=== PATIENT | female | born 1990 | race African-American/Black ===

== ENCOUNTER 2016-08-07 07:24 | Inpatient (IN) | payer MEDICAID ==
[~2016-08-07] VITALS: Ht 149.9 cm; Wt 54.4 kg
[2016-08-07] VITALS (9 sets, daily range): BP systolic 104–124; BP diastolic 63–83
[~2016-08-07 07:24] MED LIST: ACETAMINOPHEN650 M4 GT; ALBUTEROL2.5 MG/3 M INH; AMPICILLIN250 MG PO; ARTIFICIAL TEA3.5 G2 BOTH EYES; ASCORBIC ACID500 MG GT; ASPIR 8181 MG ORAL; B COMPLEX WITH1 EACH ORAL; CEPHALEXIN500 MG ORAL; CIPRO500 MG PO; COLACE100 MG ORAL; DITROPAN10 MG ORAL; FERROUS SU300 MG/5 M GT; FLUCONAZOLE100 MG ORAL; IBUPROFEN600 MG ORAL; IRON55 M1 PO; LEVAQUIN750 MG IVPB; LEVOFLOXACIN500 MG ORAL; MAGNESIUM OXID400 M1 ORAL; NEOSPORIN28 GM TP; NITROFURANTOIN100 M2 ORAL; OMEPRAZOLE40 M1 GT; RANITIDINE HCL150 MG GT; RITALIN5 MG ORAL; TYGACIL50 MG IVPB; TYLENOL650 MG/20. ORAL; VITAMIN D-32000 UNI1 PO; VITAMIN D1000 UNI1 ORAL; ZINC SULFATE220 M1 ORAL
[2016-08-07] MEDS ORDERED: Acetaminophen 650mg/20.3ml GT ONE (08:00)
[2016-08-07] MEDS ORDERED: Piperacillin/Tazobactam 3.375 GM in NS 110 ML IVPB ONE (08:00)
[2016-08-07] MEDS ORDERED: Gastrograffin 30ml ORAL ONE (08:00)
--- NOTE | 2016-08-07 08:07 | Emergency Room Report ---
History of Present Illness General Chief Complaint: Fever Source: Patient, Family Member, Medical Record Present Illness HPI 26-year-old woman with spina bifida and chronic illness, to include G-tube, PEG tube, history of severe ulcers, history of UTI and sepsis in the past. Presenting with history of possible infected G-tube location, received a PICC line at [facility] on the of this month. Discharge from the hospital on . Sent home but no home health her antibiotics were received or have been given since . The patient is not a great historian and recounts fevers, chills, shaking as well as nausea without vomiting or diarrhea. No complaints of severe respiratory symptoms, recent hospitalization has occurred and patient has been exposed to sick contacts, likely with the flu. 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 To include UTI, pneumonia, infected wounds, and G-tube infections. Found to be significantly tachycardic and febrile initially. I met the patient is severe she was brought to bed #7. Allergies: Coded Allergies: VANCOMYCIN (Verified Allergy, Intermediate, Hives, 11/27/14) Red man syndrome LATEX (Verified Allergy, Mild, 08/31/13) MEROPENEM (Unverified Allergy, Mild, Rash, 11/27/14) SULFAMETHOXAZOLE (Unverified Allergy, Unknown, 07/24/15) TRIMETHOPRIM (Unverified Allergy, Unknown, 07/24/15) Uncoded Allergies: bacrtrim (Allergy, Unknown, 07/24/15) Patient History Past Medical History: none, see triage record, old chart reviewed Past Surgical History: other - G-tube, trach Social History: Denies: alcohol use, smoking Last Menstrual Period: One week ago Now: No Immunizations: UTD Reviewed Nursing Documentation: PMH: Agreed Nursing Documentation-PMH Hx COPD: Yes - respiratory failure Hx Cancer: No Hx Gastrointestinal Problems: Yes - Gastrostomy tube, Hx Neurological Problems: Yes - hydrocephalus Hx Brain Shunt: Yes - Ventriculoperitoneal Shunt Review of Systems Constitutional: Reports: chills, fever, malaise, sweats, weakness ENT: Denies: ear discharge Respiratory: Denies: KERR, orthopnea, shortness of breath, sputum, stridor Cardiovascular: Reports: palpitations, Denies: chest pain, syncope Gastrointestinal: Reports: nausea, Denies: diarrhea, vomiting All Other Systems: negative except mentioned in HPI Physical Exam Vital Signs Date Time Temp Pulse Resp B/P Pulse Ox O2 Delivery O2 Flow Rate FiO2 08/07/16 07:28 102.4 139 20 104/71 100 Room Air Sp02 EP Interpretation: reviewed, abnormal - tachycardic, febrile General Appearance: alert, mild distress, cachetic, thin, Chronically Ill Head: atraumatic Eyes: bilateral eye PERRL Neck: supple, other - no lymphadenopathy, tracheotomy - , no drainage or purulence surrounding Respiratory: chest non-tender, no wheezing, rhonchi - , upper airway sounds, chest symmetrical Cardiovascular #1: no edema, normal capillary refill, tachycardia Cardiovascular #2: 2+ carotid (R), 2+ carotid (L) Gastrointestinal: soft, no organomegaly, non-distended, no rebound, other - G- tube in place, surrounding skin, without redness, erythema or drainage Genitourinary: no CVA tenderness Musculoskeletal: back normal, other - PICC line, left upper Bryn, no sign of redness, swelling or drainage around site. Neurologic: alert, oriented x3, responsive, visual merchandising specialist III-XII nml as tested Psychiatric: normal inspection, judgement/insight normal Skin: no rash, other - well healed deep scar is from decubitus ulcers, no open wounds Procedures Critical Care Time Critical Care Time 65 minutes of crCritical care, not including procedures. This involved initial assessment, reassessments, history and record review does, discussions with family, review of labs, old records and labs, review of imaging and discussion with consultants, admission physicians and resuscitation efforts as well as reexaminations. Medical Decision Making Diagnostic Impression: Primary Impression: Fever with chills Additional Impressions: History of gastrostomy tube placement Tracheostomy in place Sepsis Spina bifida aperta of lumbar spine Tachycardia Paraplegia UTI (urinary tract infection) ER Course Patient was rapidly reviewed and met in bed 7. She has significant fever, tachycardia and is chronically ill at baseline. Differential can be wide but includes multiple infectious sources, such as trach infection, PICC line infection, septicemia, G-tube infection, osteomyelitis, influenza, pneumonia, or UTI. Brought review and analysis of patient required an extensive workup to include urinalysis, x-ray, blood work, cultures, CT abdomen and pelvis. Sepsis order set started with lactate, gases, IV fluids and antibiotics can to include Zosyn. The patient is supposed to be on antibiotic but she is unaware of what the anabiotic would be, mother is also unaware of the correct antibiotic. She has no primary care doctor and they state that they go to [facility] for all of their care. Patient at this time in my opinion is highly likely for sepsis, and require mission to the hospital. My initial review of chest x-ray, urinalysis and blood work reveals that overall she does not have an elevated white count, or renal dysfunction fortunately. Chest x-ray does not show pneumonia. I do believe that the patient likely is indices suggestive of urinary infection. Antibiotics to include Zosyn have been started. A CT of the abdomen and pelvis will also be obtained as she is relatively high-risk patient. I believe based on her fever, tachycardia, early sepsis without septic shock at this time she should be admitted for further antibiotics and treatment. We'll have to contact admitting physicians for this. Reviewed patient's followup vitals, improved on fever and tachycardia, stable blood pressure, spoke with Dr. Mayen and we feel she is a good patient for admission for the HOLLY due to her complicated risk factors and risk of decompensation. Laboratory Tests Test 08/07/16 08:15 08/07/16 08:30 White Blood Count 7.2 K/UL (4.8-10.8) Red Blood Count 3.80 M/UL (4.20-5.40) L Hemoglobin 12.3 G/DL (12.0-16.0) Hematocrit 35.6 % (37.0-47.0) L Mean Corpuscular Volume 94 FL (80-99) Mean Corpuscular Hemoglobin 32.4 PG (27.0-31.0) H Mean Corpuscular Hemoglobin Concent 34.6 G/DL (32.0-36.0) Red Cell Distribution Width 12.8 % (11.6-14.8) Platelet Count 214 K/UL (150-450) Mean Platelet Volume 7.7 FL (6.5-10.1) Neutrophils (%) (Auto) 71.9 % (45.0-75.0) Lymphocytes (%) (Auto) 13.4 % (20.0-45.0) L Monocytes (%) (Auto) 8.3 % (1.0-10.0) Eosinophils (%) (Auto) 5.6 % (0.0-3.0) H Basophils (%) (Auto) 0.8 % (0.0-2.0) Prothrombin Time 11.5 SEC (9.30-11.50) Prothromb Time International Ratio 1.1 (0.9-1.1) Activated Partial Thromboplast Time 30 SEC (23-33) Sodium Level 137 mEQ/L (135-145) Potassium Level 3.9 mEQ/L (3.4-4.9) Chloride Level 96 mEQ/L (98-107) L Carbon Dioxide Level 23 mEQ/L (20-30) Anion Gap 18 (5-15) H Blood Urea Nitrogen 11 mg/dL (7-23) Creatinine 0.5 mg/dL (0.5-0.9) Estimat Glomerular Filtration Rate > 60 mL/min (>60) Glucose Level 82 mg/dL (74-106) Lactic Acid Level 0.90 mmol/L (0.66-2.22) Calcium Level 9.3 mg/dL (8.6-10.2) Phosphorus Level 3.3 mg/dL (2.5-4.8) Magnesium Level 1.8 mg/dL (1.7-2.5) Total Bilirubin 0.5 mg/dL (0.0-1.2) Aspartate Amino Transf (AST/SGOT) 36 U/L (5-40) Alanine Aminotransferase (ALT/SGPT) 47 U/L (3-33) H Alkaline Phosphatase 113 U/L (35-104) H Total Creatine Kinase 46 U/L (26-140) Creatine Kinase MB < 1.5 ng/mL (< 3.8) Creatine Kinase MB Relative Index 3.2 Troponin I < 0.30 ng/mL (<=0.30) Total Protein 7.8 g/dL (6.6-8.7) Albumin 4.0 g/dL (3.5-5.2) Globulin 3.8 g/dL Albumin/Globulin Ratio 1.0 (1.0-2.7) Lipase 15 U/L (< 60) Urine Color Yellow Urine Appearance Slightly cloudy Urine pH 6 (4.5-8.0) Urine Specific [place] 1.015 (1.005-1.035) Urine Protein 2+ (NEGATIVE) H Urine Glucose (UA) Negative (NEGATIVE) Urine Ketones Negative (NEGATIVE) Urine Occult Blood 2+ (NEGATIVE) H Urine Nitrite Positive (NEGATIVE) H Urine Bilirubin Negative (NEGATIVE) Urine Urobilinogen Normal MG/DL (0.0-1.0) Urine Leukocyte Esterase 3+ (NEGATIVE) H Urine RBC 2-4 /HPF (0 - 2) H Urine WBC 20-30 /HPF (0 - 2) H Urine Squamous Epithelial Cells Few /LPF (NONE/OCC) Urine Bacteria Moderate /HPF (NONE) H EKG Diagnostic Results EKG Time: 08:02 EP Interpretation: sinus tachycardia, rate 137 Rate: tachycardiac ST Segments: no acute changes Rhythm Strip Diag. Results Rhythm Strip Time: 08:07 EP Interpretation: yes Rate: 144 Rhythm: no PVC's, no ectopy, other - sinus tach Chest X-Ray Diagnostic Results Time: 08:46 EP Interpretation: Yes Findings: no consolidation, no effusion, no pneumothorax, no acute cardiopulmonary disease, other - trach in place Number of Views: 1 Reevaluation Time: 10:28 Last Vital Signs Date Time Temp Pulse Resp B/P Pulse Ox O2 Delivery O2 Flow Rate FiO2 08/07/16 07:48 103.2 136 20 104/71 100 Room Air Status: improved - reduce temperature, reduced hear rate, stable blood pressure Disposition: ADMITTED INPATIENT Admit Decision Time: 08:07 Condition: Serious Enmanuel Álvarez MD Aug 07, 2016 08:07
[2016-08-07] MEDS ORDERED: ANTIBIOTIC (08:08)
[2016-08-07] MEDS ORDERED: Zosyn 3.375gm inj ONE (08:44)
[2016-08-07 08:45] LABS: INR 1.1 (0.9-1.1); PROTHROMBIN TIME 11.5 SEC (9.30-11.50)
[2016-08-07 08:48] LABS: BASOPHILS % (AUTO) 0.8 % (0.0-2.0); EOSINOPHILS % (AUTO) 5.6 % (0.0-3.0); LYMPHOCYTES % (AUTO) 13.4 % (20.0-45.0); MEAN CORPUSCULAR HEMOGLOBIN 32.4 PG (27.0-31.0); MEAN CORPUSCULAR HGB CONC 34.6 G/DL (32.0-36.0); MEAN CORPUSCULAR VOLUME 94 FL (80-99); MEAN PLATELET VOLUME 7.7 FL (6.5-10.1); MONOCYTES % (AUTO) 8.3 % (1.0-10.0); NEUTROPHILS % (AUTO) 71.9 % (45.0-75.0); PLATELET COUNT 214 K/UL (150-450); RED CELL DISTRIBUTION WIDTH 12.8 % (11.6-14.8); WHITE BLOOD COUNT 7.2 K/UL (4.8-10.8)
[2016-08-07 08:59] LABS: APPEARANCE,URINE SLIGHTLY CLOUDY; KETONES,URINE NEGATIVE (NEGATIVE); LEUKOCYTE ESTERASE ,URINE 3+ (NEGATIVE); NITRITE,URINE POSITIVE (NEGATIVE); PH,URINE 6 (4.5-8.0); PROTEIN,URINE 2+ (NEGATIVE); UROBILINOGEN,URINE NORMAL MG/DL (0.0-1.0)
[2016-08-07 09:03] LABS: ALANINE AMINOTRANSFERASE 47 U/L (3-33); ANION GAP 18 (5-15); ASPARTATE AMINO TRANSFERASE 36 U/L (5-40); CALCIUM 9.3 mg/dL (8.6-10.2); CARBON DIOXIDE 23 mEQ/L (20-30); CHLORIDE 96 mEQ/L (98-107); CREATININE 0.5 mg/dL (0.5-0.9); GLOMERULAR FILTRATION RATE > 60 mL/min (>60); HEMOLYSIS 16; LIPASE 15 U/L (< 60); MAGNESIUM 1.8 mg/dL (1.7-2.5); PHOSPHORUS 3.3 mg/dL (2.5-4.8); POTASSIUM 3.9 mEQ/L (3.4-4.9); SODIUM 137 mEQ/L (135-145); TOTAL PROTEIN 7.8 g/dL (6.6-8.7); TROPONIN I < 0.30 ng/mL (<=0.30)
[2016-08-07 09:09] LABS: BACTERIA,URINE MODERATE /HPF; SQUAMOUS EPITHELIAL CELL,UR FEW /LPF (NONE/OCC); WBC,URINE 20-30 /HPF (0 - 2)
[2016-08-07 09:14] LABS: CKMB < 1.5 ng/mL (< 3.8)
--- NOTE | 2016-08-07 11:29 | Diagnostic Imaging Report ---
Indication: Abdominal pain Technique: CT of the abdomen and pelvis utilizing automated exposure control with intravenous and oral contrast. Venous scanning performed. CT dose: Total DLP 673 mGycm; CTDI vol 15.0 mGy Comparison: None Findings: There is atelectasis in the lung bases. Gastrostomy tube is noted in the stomach. Liver, adrenal glands, kidneys, spleen and pancreas are unremarkable. Questioned level densities in the gallbladder could represent small stones. Lezama catheter is present. Uterus is grossly unremarkable. There is moderate stool throughout the colon. The appendix is normal. A peritoneal catheter is present. There is trace free fluid in the pelvis. There is chronic deformity of the spine with reported history of spina bifida. 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 Impression: Gastrostomy tube noted within the stomach. No mechanical obstruction. Normal appendix. Moderate colonic stool. Chronic osseous findings as above. The CT scanner at [facility] is accredited by the [employer] and the scans are performed using protocols designed to limit radiation exposure to as low as reasonably achievable to attain images of sufficient resolution adequate for diagnostic evaluation.
--- NOTE | 2016-08-07 11:46 | Diagnostic Imaging Report ---
Indication: Cough Technique: XRAY CHEST 1 V Comparison: 02/05/16 Findings: Left PICC line is present with tip projecting over the SVC/atrial junction. Right chest shunt is noted. Tracheostomy seen. Cardiomediastinal silhouette is stable. Mild atelectasis is noted in the left base. There is no pleural effusion. Osseous structures are stable. Impression: Mild left basilar atelectasis. Otherwise no acute cardiopulmonary disease. Left PICC line and right chest shunt tubing.
[2016-08-07] MEDS ORDERED: LORazepam Inj 2mg/ml 1ml IV PRN (12:30)
[2016-08-07] MEDS ORDERED: Morphine Sulfate 4mg/ml Inj IVP PRN (12:30)
[2016-08-07] MEDS ORDERED: DuoNeb 0.5-3(2.5)mg/3ml neb HHN PRN (12:30)
[2016-08-07] MEDS ORDERED: Miralax 17gm pkt ORAL PRN (12:30)
[2016-08-07] MEDS ORDERED: Aztreonam Inj 1 GM in NS 50 ML IVPB SCH (14:00)
[2016-08-07] MEDS: Oxybutynin 5mg tab ORAL SCH ×2 (14:35→22:54)
[2016-08-07] MEDS: Aztreonam Inj 1 GM in D5W 55 ML IVPB SCH (22:55)
[2016-08-07] MEDS: Heparin 5000 units/ml inj SUBQ SCH (22:56)
[2016-08-08] VITALS: BP 114/80
[2016-08-08] MEDS ORDERED: FLONASE1 SPRAYS (01:53)
[2016-08-08] MEDS ORDERED: DOCU LIQUI50 MG/5 M1 (01:53)
[2016-08-08] MEDS ORDERED: FERROUS SU220 MG/53 (01:53)
[2016-08-08] MEDS ORDERED: OXYBUTYNIN5 MG/5 M1 (01:53)
[2016-08-08 04:00] VITALS: BP 115/80
[2016-08-08] MEDS: Aztreonam Inj 1 GM in D5W 55 ML IVPB SCH (05:43)
[2016-08-08 07:55] LABS: BASOPHILS % (AUTO) 1.5 % (0.0-2.0); EOSINOPHILS % (AUTO) 4.9 % (0.0-3.0); LYMPHOCYTES % (AUTO) 23.3 % (20.0-45.0); MEAN CORPUSCULAR HEMOGLOBIN 30.3 PG (27.0-31.0); MEAN CORPUSCULAR HGB CONC 32.3 G/DL (32.0-36.0); MEAN CORPUSCULAR VOLUME 94 FL (80-99); MEAN PLATELET VOLUME 7.1 FL (6.5-10.1); NEUTROPHILS % (AUTO) 62.3 % (45.0-75.0); PLATELET COUNT 185 K/UL (150-450); RED BLOOD COUNT 3.36 M/UL (4.20-5.40); RED CELL DISTRIBUTION WIDTH 12.1 % (11.6-14.8); WHITE BLOOD COUNT 5.3 K/UL (4.8-10.8)
[2016-08-08 08:00] VITALS: BP 105/63
[2016-08-08 08:15] LABS: ANION GAP 18 (5-15); CALCIUM 9.1 mg/dL (8.6-10.2); CARBON DIOXIDE 22 mEQ/L (20-30); CHLORIDE 98 mEQ/L (98-107); CREATININE 0.6 mg/dL (0.5-0.9); GLOMERULAR FILTRATION RATE > 60 mL/min (>60); HEMOLYSIS 2; PHOSPHORUS 2.9 mg/dL (2.5-4.8); POTASSIUM 3.7 mEQ/L (3.4-4.9); SODIUM 138 mEQ/L (135-145)
[2016-08-08] MEDS: Oxybutynin 5mg tab ORAL SCH ×3 (08:48→18:08)
[2016-08-08] MEDS: Heparin 5000 units/ml inj SUBQ SCH ×2 (08:50→20:12)
--- NOTE | 2016-08-08 10:44 | Consultation ---
Consult Note Assessment/Plan ID Dic # [id number] ASSESSMENT: 89y/o female with: // HCAP vs CAP // Fever // Ro UTI - Hx of hemorrhagic cystitis UTI,: Kleb , Pseudomonas - neurogenic bladder, chronic indwelling sterling ( last changed 2 days prior by sister, again in ED ) // Stage IV sacral decubitus, not grossly infected, healing - h/o ESBL(+) E.coli, sensitive K.pneumoniae, MSSA - MRI(-) osteomyelitis 11/2014 // Sinus tachycardia // Chronic respiratory failure s/p trach, PEG // Spina bifida / paraplegia // MDRO colonized ( VRE, ESBL ) // Multiple ABX allergies - bactrim, vancomycin, meropenem. Tolerating cefepime // Full Code PLAN: - continue azactam, Zyvox, add Zithro d# 1 - monitor CBC, temperatures - monitor Cultures ( Bl, Sp, Ur) - wound care - Influenza Screen ANDRES NUNEZ M.D. Aug 08, 2016 10:44
[2016-08-08 12:00] VITALS: BP 117/76
[2016-08-08] MEDS ORDERED: Azithromycin 500 MG in D5W 275 ML IV SCH (13:00)
[2016-08-08] MEDS: cefTAZidime 1gm/D5W 55ml IV SCH ×4 (14:10→21:59)
[2016-08-08 16:00] VITALS: BP 117/75
--- NOTE | 2016-08-08 16:51 | History and Physical ---
History of Present Illness General Date patient seen: Aug 08, 2016 Reason for Hospitalization: Fever Present Illness HPI 26 year old female with hx of hydrocephalus, chronic trach, PEG, residing at home. Pt was diagnosed to have gtube site infection and was sent home to receive IV antibiotics. Home health never showed up and she didn't get any abx. then she started having fevers, and was taken by paramedics to [place] [facility] for further evaluation. Pt is awake, can't talk because of trach, fully understands. Has severe contractures is bed bound for years. Allergies: Coded Allergies: LATEX (Verified Allergy, Mild, 08/31/13) MEROPENEM (Unverified Allergy, Mild, Rash, 11/27/14) SULFAMETHOXAZOLE (Unverified Allergy, Unknown, 07/24/15) TRIMETHOPRIM (Unverified Allergy, Unknown, 07/24/15) VANCOMYCIN (Verified Adverse Reaction, Intermediate, Hives/Red man syndrome, 08/08/16) Red man syndrome Uncoded Allergies: bacrtrim (Allergy, Unknown, 07/24/15) Medication History Scheduled Acetaminophen (Acetaminophen 8 Hour), 650 MG GT Q8H, (Reported) Ascorbic Acid* (Ascorbic Acid*), 500 MG GT DAILY, (Reported) Aspirin* (Aspir 81*), 81 MG ORAL DAILY Cephalexin* (Keflex*), 500 MG ORAL EVERY 6 HOURS Cholecalciferol (Vitamin D3)* (Vitamin D*), 5,000 UNITS ORAL DAILY, (Reported) Ciprofloxacin* (Cipro*), 500 MG PO BID Docusate Sodium* (Colace*), 100 MG ORAL TWICE A DAY, (Reported) Ferrous Sulfate (Ferrous Sulfate), 300 MG GT TID Fluconazole (Fluconazole), 100 MG ORAL DAILY Levofloxacin (Levofloxacin*), 500 MG ORAL DAILY Levofloxacin* (Levaquin*), 750 MG IVPB DAILY Magnesium Oxide (Magnesium Oxide), 400 MG ORAL BID, (Reported) Mineral Oil/Petrolatum,White (Artificial Tears Eye Oint), 3.5 GM BOTH EYES QHS, (Reported) Nitrofurantoin Monohyd/M-Cryst* (Macrobid 100 Mg*), 100 MG ORAL EVERY 12 HOURS Omeprazole (Omeprazole), 40 MG GT DAILY, (Reported) Oxybutynin Chloride (Oxybutynin Chloride), 5 MG ORAL TID, (Reported) Ranitidine Hcl* (Zantac*), 150 MG GT TWICE A DAY Vitamin B Complex & Vit C No.3 (B Complex With Vitamin C), 1 TAB ORAL DAILY, ( Reported) Zinc Sulfate (Zinc Sulfate*), 220 MG ORAL DAILY Scheduled PRN Acetaminophen (Acetaminophen), 650 MG ORAL Q4HR PRN for Fever/Headache/Mild Pain , (Reported) Albuterol Sulfate* (Albuterol Sulfate Hhn*), 3 ML INH Q4H PRN for Shortness of Breath, (Reported) Miscellaneous Medications Cholecalciferol (Vitamin D3) (Vitamin D-3), 5,000 UNIT PO, (Reported) Docusate Sodium (Docu Liquid), (Reported) Ferrous Sulfate (Ferrous Sulfate), (Reported) Fluticasone Propionate (Fluticasone Propionate), (Reported) Oxybutynin Chloride (Oxybutynin Chloride), (Reported) [IV antibiotic], (Reported) Patient History Healthcare decision maker Resuscitation status No Chest Compressions Advanced Directive on File Past Medical/Surgical History Past Medical/Surgical History: (1) History of gastrostomy tube placement (2) Hydrocephalus (3) Tracheostomy in place (4) Decubitus skin ulcer (5) Spina bifida aperta of lumbar spine Review of Systems All Other Systems: negative except mentioned in HPI Physical Exam General Appearance: cachetic Lines, tubes and drains: peripheral, PICC, gtube HEENT: normocephalic Neck: non-tender, normal alignment Respiratory/Chest: chest wall non-tender, lungs clear Abdomen: normal bowel sounds Extremities: normal range of motion Skin Exam: normal pigmentation Last 24 Hour Vital Signs Date Time Temp Pulse Resp B/P Pulse Ox O2 Delivery O2 Flow Rate FiO2 08/08/16 12:00 111 08/08/16 12:00 97.3 113 16 117/76 99 Room Air 08/08/16 08:00 113 08/08/16 08:00 98.1 100 16 105/63 98 Room Air 2.0 08/08/16 05:15 98.4 08/08/16 05:15 98.4 08/08/16 04:00 129 08/08/16 04:00 100.4 129 18 115/80 100 Nasal Cannula 5.0 08/08/16 00:00 118 08/08/16 00:00 97.2 111 18 114/80 100 Room Air 08/07/16 22:46 99.1 122 20 109/63 99 Room Air 08/07/16 22:17 100.5 124 18 118/62 98 Room Air 124 08/07/16 21:33 100.5 124 22 114/70 99 Room Air 124 08/07/16 19:30 101.2 122 22 110/71 99 Room Air 122 Intake and Output 08/07/16 08/08/16 19:00 07:00 Intake Total 160 ml 590 ml Output Total 200 ml 1000 ml Balance -40 ml -410 ml Intake Free Water 100 ml IV Total 160 ml 415 ml Tube Feeding 75 ml Output Urine Total 200 ml 1000 ml Laboratory Tests Test 08/08/16 06:40 White Blood Count 5.3 K/UL (4.8-10.8) Red Blood Count 3.36 M/UL (4.20-5.40) L Hemoglobin 10.2 G/DL (12.0-16.0) L Hematocrit 31.5 % (37.0-47.0) L Mean Corpuscular Volume 94 FL (80-99) Mean Corpuscular Hemoglobin 30.3 PG (27.0-31.0) Mean Corpuscular Hemoglobin Concent 32.3 G/DL (32.0-36.0) Red Cell Distribution Width 12.1 % (11.6-14.8) Platelet Count 185 K/UL (150-450) Mean Platelet Volume 7.1 FL (6.5-10.1) Neutrophils (%) (Auto) 62.3 % (45.0-75.0) Lymphocytes (%) (Auto) 23.3 % (20.0-45.0) Monocytes (%) (Auto) 8.0 % (1.0-10.0) Eosinophils (%) (Auto) 4.9 % (0.0-3.0) H Basophils (%) (Auto) 1.5 % (0.0-2.0) Sodium Level 138 mEQ/L (135-145) Potassium Level 3.7 mEQ/L (3.4-4.9) Chloride Level 98 mEQ/L (98-107) Carbon Dioxide Level 22 mEQ/L (20-30) Anion Gap 18 (5-15) H Blood Urea Nitrogen 7 mg/dL (7-23) Creatinine 0.6 mg/dL (0.5-0.9) Estimat Glomerular Filtration Rate > 60 mL/min (>60) Glucose Level 93 mg/dL (74-106) Calcium Level 9.1 mg/dL (8.6-10.2) Phosphorus Level 2.9 mg/dL (2.5-4.8) Albumin 3.7 g/dL (3.5-5.2) Microbiology Date/Time Source Procedure Growth Status 08/08/16 11:30 Nasopharynx Influenza Types A,B Antigen (TEX) - Final Complete Height (Feet): 4 Height (Inches): 11.00 Weight (Pounds): 120 Medications Current Medications Medications (Trade) Dose Ordered Sig/Hedy Route PRN Reason Start Time Stop Time Status Last Admin Dose Admin Acetaminophen (Tylenol) 650 mg Q4H PRN ORAL FEVER 08/07/16 12:30 09/06/16 12:29 08/08/16 04:16 Albuterol/ Ipratropium (DuoNeb 0.5-3(2.5)mg/3ml) 3 ml Q4H PRN HHN Shortness of Breath 08/07/16 12:30 08/12/16 12:29 08/07/16 12:43 Azithromycin/ Dextrose (Zithromax/D5W) 275 ml @ 275 mls/hr Q24HRS IV 08/08/16 13:00 08/14/16 13:59 08/08/16 13:00 Ceftazidime 1 gm/ Dextrose 55 ml @ 110 mls/hr Q8HR IV 08/08/16 14:00 08/15/16 13:59 08/08/16 14:10 Dextrose (Dextrose 50%) STAT PRN IV Hypoglycemia 08/07/16 12:30 09/06/16 12:29 Heparin Sodium (Porcine) (Heparin 5000 units/ml) 5,000 units EVERY 12 HOURS SUBQ 08/07/16 21:00 09/06/16 20:59 08/08/16 08:50 Linezolid 600 mg 600 mg EVERY 12 HOURS ORAL 08/07/16 14:30 08/12/16 14:29 08/08/16 08:48 Lorazepam (Ativan 2mg/ml 1ml) 2 mg Q2H PRN IV For Anxiety 08/07/16 12:30 08/14/16 12:29 Morphine Sulfate (Morphine Sulfate) 4 mg Q4H PRN IVP Severe Pain (Pain Scale 7-10) 08/07/16 12:30 08/14/16 12:29 Ondansetron HCl (Zofran) 4 mg Q6H PRN IVP Nausea & Vomiting 08/07/16 12:30 09/06/16 12:29 Oxybutynin Chloride 5 mg 5 mg TID ORAL 08/07/16 13:00 09/06/16 12:59 08/08/16 08:48 Polyethylene Glycol (Miralax) 17 gm DAILYPRN PRN ORAL Constipation 08/07/16 12:30 09/06/16 12:29 Sodium Chloride (0.45% NS 1000ml) 1,000 ml @ 50 mls/hr Q20H IV 08/07/16 13:00 09/06/16 12:59 08/08/16 13:02 Assessment/Plan Problem List: (1) G-tube site cellulitis ICD Codes: K94.22 - Gastrostomy infection; L03.319 - Cellulitis of trunk, unspecified SNOMED: 645819788, 465870471 (2) Sepsis ICD Codes: A41.9 - Sepsis SNOMED: 40313767 (3) Hydrocephalus ICD Codes: G91.9 - Hydrocephalus SNOMED: 064171083 (4) Tachycardia ICD Codes: R00.0 - Tachycardia SNOMED: 0738550 (5) Spina bifida aperta of lumbar spine ICD Codes: Q05.7 - Spina bifida aperta of lumbar spine SNOMED: 923603598 Assessment/Plan IV antibtiotics check cultures GI evaluation SHEYLA CAMPOS Aug 08, 2016 16:51
--- NOTE | 2016-08-08 18:58 | Cardiology Report ---
APPROVED REPORT EKG Measurement Heart [id number] MD [id number] Sinus tachycardia Otherwise normal ECG
[2016-08-08 20:00] VITALS: BP 107/68
--- NOTE | 2016-08-08 20:17 | Consultation ---
DATE OF CONSULTATION: INFECTIOUS DISEASE CONSULTATION REFERRING PHYSICIAN: Emily Mayen M.D. REASON FOR CONSULTATION: Evaluation of the patient for pneumonia, fever, antibiotic management. HISTORY OF PRESENT ILLNESS: The patient is a 26-year-old female with multiple medical problems as listed above who came to the hospital due to fever, productive cough with reported cough with greenish sputum. The patient is receiving . Infectious Diseases consultation requested for further evaluation of the patient's antibiotic management. The patient's mother mention that some time when she eats she has occasional cough. PAST MEDICAL HISTORY: 1. Significant for hematuria/hemorrhagic cystitis. 2. Stage IV sacral decubitus. 3. Sinus bradycardia. 4. Respiratory failure status post tracheostomy and percutaneous endoscopic gastrostomy. 5. Spina bifida//paraplegia. MEDICATIONS: Zyvox. ALLERGIES: Latex, meropenem, sulfa trimethoprim, vancomycin, Bactrim. SOCIAL HISTORY: The patient lives at home with family. REVIEW OF SYSTEMS: A 10-point was done except for what was mentioned was negative. PHYSICAL EXAMINATION: VITAL SIGNS: Temperature 100.4, pulse 86, respiratory rate 18, and blood pressure 105/60, T-max 103.2. HEENT: Mild pale conjunctivae. No icterus. NECK: Trach in place. CHEST: Coarse breathing sounds. HEART: S1 and S2. ABDOMEN: Soft G-tube in place. EXTREMITIES: Contracted. SKIN: Stage 2 to 3 sacral decubitus. LABORATORY AND DIAGNOSTIC DATA: White cell 5, hemoglobin 10, platelet 185,000. UA 20 to 30 white blood cells, BUN 7, creatinine 0.8. ALT and AST unremarkable, alkaline phosphatase 113. ASSESSMENT: The patient is a 26-year-old female, who came to the hospital with fever and sputum production. Chest x-ray showed mild left basilar atelectasis. Also, the patient has a PICC line, concern for possible line infection and bacteremia. CT scan of the abdomen did not show any evidence of abscess or source of infection. PLAN: 1. We will continue the patient on Zyvox. We will add Zithromax for coverage of atypicals. 2. Monitor cultures(sputum, urine, and blood). 3. Rapid influenza test. 4. Monitor chest x-ray. 5. Monitor CBC and BMP in the morning. 6. Based on the patient's clinical course and laboratories, we will do further recommendation. Thank you, Dr. Mayen, for allowing me to participate in the care of this patient. I will follow the patient with you during this hospitalization. Celio Maxwell M.D. DR: Jenn JOB#: [id number] CC:
[2016-08-09] VITALS (7 sets, daily range): BP systolic 94–103; BP diastolic 54–64
[2016-08-09] MEDS: cefTAZidime 1gm/D5W 55ml IV SCH ×2 (05:40)
[2016-08-09] MEDS ORDERED: Miralax 17gm pkt ORAL PRN (07:41)
[2016-08-09] MEDS ORDERED: DuoNeb 0.5-3(2.5)mg/3ml neb HHN PRN (07:41)
[2016-08-09] MEDS ORDERED: LORazepam Inj 2mg/ml 1ml IV PRN (07:41)
[2016-08-09] MEDS ORDERED: Morphine Sulfate 4mg/ml Inj IVP PRN (07:41)
[2016-08-09] MEDS: Heparin 5000 units/ml inj SUBQ SCH ×2 (09:00→21:19)
[2016-08-09] MEDS: Oxybutynin 5mg tab ORAL SCH ×4 (09:32→17:07)
--- NOTE | 2016-08-09 10:48 | Infectious Diseases Prog Note ---
Assessment/Plan Assessment/Plan ASSESSMENT: 26y/o female with: // HCAP vs CAP - SCx GNR, NRF - CXR 08/07: Mild left basilar atelectasis. Otherwise no acute cardiopulmonary disease. // Recurrent complicated UTI - UCx K.pneumoniae - Hx of hemorrhagic cystitis, Kleb , Pseudomonas - neurogenic bladder, chronic indwelling sterling // Stage IV sacral decubitus, not grossly infected, healing - h/o ESBL(+) E.coli, sensitive K.pneumoniae, MSSA - MRI(-) osteomyelitis 11/2014 // Negative influenza // Fever - improved, no leukocytosis // Sinus tachycardia // Chronic respiratory failure s/p trach, PEG // Spina bifida / paraplegia // Dysphagia SP PEG // MDRO colonized ( VRE, ESBL ) // Multiple ABX allergies - bactrim, vancomycin, meropenem. Tolerates cephalosporins // Full Code PLAN: - continue azactam, Zyvox, add Zithro d# 2 - monitor CBC, temperatures - monitor Cultures ( Bl, Sp, Ur) - wound care Subjective Allergies: Coded Allergies: LATEX (Verified Allergy, Mild, 08/31/13) MEROPENEM (Unverified Allergy, Mild, Rash, 11/27/14) SULFAMETHOXAZOLE (Unverified Allergy, Unknown, 07/24/15) TRIMETHOPRIM (Unverified Allergy, Unknown, 07/24/15) VANCOMYCIN (Verified Adverse Reaction, Intermediate, Hives/Red man syndrome, 08/08/16) Red man syndrome Uncoded Allergies: bacrtrim (Allergy, Unknown, 07/24/15) Subjective fevers improved Objective Vital Signs Last 24 Hour Vital Signs Date Time Temp Pulse Resp B/P Pulse Ox O2 Delivery O2 Flow Rate FiO2 08/09/16 08:45 98.4 109 19 94/58 99 Room Air 08/09/16 08:43 98.4 109 19 99 Room Air 08/09/16 04:00 98.8 114 18 100/64 100 Nasal Cannula 5.0 08/09/16 04:00 124 08/09/16 00:41 99 Trach Collar 6.0 28 08/09/16 00:41 Trach Collar 6.0 28 08/09/16 00:00 97.0 106 16 100/54 100 5.0 08/09/16 00:00 99 08/08/16 22:11 100 Trach Collar 6.0 28 08/08/16 22:11 Trach Collar 6.0 28 08/08/16 22:09 114 18 Trach Collar 6.0 28 08/08/16 20:00 98.2 125 14 107/68 100 Room Air 08/08/16 20:00 116 08/08/16 17:56 98.7 08/08/16 16:00 101.5 119 14 117/75 100 Room Air 08/08/16 16:00 117 08/08/16 12:00 111 08/08/16 12:00 97.3 113 16 117/76 99 Room Air Height (Feet): 4 Height (Inches): 11.00 Weight (Pounds): 120 General Appearance: no acute distress Respiratory/Chest: no respiratory distress Cardiovascular: normal rate, regular rhythm Abdomen: normal bowel sounds, soft, non tender, non distended, other - PEG Microbiology Date/Time Source Procedure Growth Status 08/07/16 08:37 Blood Blood Culture - Preliminary NO GROWTH AFTER 24 HOURS Resulted 08/07/16 08:15 Blood Blood Culture - Preliminary NO GROWTH AFTER 24 HOURS Resulted 08/08/16 11:30 Nasopharynx Influenza Types A,B Antigen (TEX) - Final Complete 08/07/16 10:01 Sputum Expectorated Gram Stain - Final Resulted 08/07/16 10:01 Sputum Culture - Preliminary Gram Negative Bacillus 1 Usual Upper Respiratory Fatimah Resulted 08/07/16 08:30 Urine,Clean Catch Urine Culture - Final Klebsiella Pneumoniae Complete Current Medications Medications (Trade) Dose Ordered Sig/Hedy Route PRN Reason Start Time Stop Time Status Last Admin Dose Admin Acetaminophen (Tylenol) 650 mg Q4H PRN ORAL FEVER 08/09/16 08:30 09/08/16 08:29 Albuterol/ Ipratropium (DuoNeb 0.5-3(2.5)mg/3ml) 3 ml Q4H PRN HHN Shortness of Breath 08/09/16 07:41 08/14/16 07:40 Azithromycin 500 mg/Dextrose 275 ml @ 275 mls/hr Q24HRS IV 08/09/16 13:00 08/14/16 13:59 Ceftazidime/ Dextrose (Fortaz/D5W) 55 ml @ 110 mls/hr Q8HR IV 08/09/16 14:00 08/16/16 13:59 Dextrose (Dextrose 50%) STAT PRN IV Hypoglycemia 08/09/16 07:40 09/08/16 07:39 Heparin Sodium (Porcine) (Heparin 5000 units/ml) 5,000 units EVERY 12 HOURS SUBQ 08/09/16 09:00 09/08/16 08:59 08/09/16 09:00 Linezolid (Zyvox) 600 mg EVERY 12 HOURS ORAL 08/09/16 09:00 08/14/16 08:59 08/09/16 09:32 Lorazepam (Ativan 2mg/ml 1ml) 2 mg Q2H PRN IV For Anxiety 08/09/16 07:41 08/16/16 07:40 Morphine Sulfate (Morphine Sulfate) 4 mg Q4H PRN IVP Severe Pain (Pain Scale 7-10) 08/09/16 07:41 08/16/16 07:40 Ondansetron HCl (Zofran) 4 mg Q6H PRN IVP Nausea & Vomiting 08/09/16 07:41 09/08/16 07:40 Oxybutynin Chloride (Ditropan) 5 mg TID ORAL 08/09/16 09:00 09/08/16 08:59 08/09/16 09:32 Polyethylene Glycol (Miralax) 17 gm DAILYPRN PRN ORAL Constipation 08/09/16 07:41 09/08/16 07:40 Sodium Chloride 1,000 ml @ 50 mls/hr Q20H IV 08/09/16 08:00 09/08/16 07:59 CHUNG ARMENTA Aug 09, 2016 10:48
[2016-08-09] MEDS: Azithromycin 500 MG in D5W 275 ML IV SCH (14:27)
--- NOTE | 2016-08-09 15:18 | GI Initial Consult Note ---
History of Present Illness General Date patient seen: Aug 09, 2016 Time patient seen: 13:00 Reason for Hospitalization: Fever Referring physician: SHEYLA QUIGLEY Reason for Consultation: GT SITE CELLUTITIS Present Illness HPI 26-year-old woman with spina bifida and chronic illness, to include G-tube, PEG tube, history of severe ulcers, history of UTI and sepsis in the past. Presenting with history of possible infected G-tube location, received a PICC line at [facility] on the of this month. Discharge from the hospital on . Sent home but no home health her antibiotics were received or have been given since . The patient is not a great historian and recounts fevers, chills, shaking as well as nausea without vomiting or diarrhea. No complaints of severe respiratory symptoms, recent hospitalization has occurred and patient has been exposed to sick contacts, likely with the flu. 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 To include UTI, pneumonia, infected wounds, and G-tube infections. Found to be significantly tachycardic and febrile initially. I met the patient is severe she was brought to bed #7. GI CONSULT: HPI as noted above. GI consulted got GT site cellulitis. Pt seen on floor, awake A&O NAD with mother at bedside. Pt mother states the patient was recently diagnosed with GT site cellulitis and given a course of antibiotics. She stated that the patient did finish the course of abx and believes the patient still has an active infection. Pt GT site was assessed; C/ D/I with no noted purulent drainage nor foul order noted. No erythema noted on the skin. The dressing was clean and dried and changed daily by the other. She p/w with normal white count, abnormal LFTs and anemia. AP CT shows no obvious obstruction and stool in the colon. Home Meds Active Scripts Levofloxacin (LEVOFLOXACIN*) 500 Mg Tablet, 500 MG ORAL DAILY, #7 TAB Prov:Baron Dobbins 02/10/16 Cephalexin* (KEFLEX*) 500 Mg Capsule, 500 MG ORAL EVERY 6 HOURS, #28 CAP Prov:Baron Dobbins 02/05/16 Fluconazole (FLUCONAZOLE) 100 Mg Tablet, 100 MG ORAL DAILY, #7 TAB 0 Refills Prov:Baron Dobbins 08/20/15 Nitrofurantoin Monohyd/M-Cryst* (MACROBID 100 MG*) 100 Mg Capsule, 100 MG ORAL EVERY 12 HOURS, #14 CAP Prov:Baron Dobbins 08/20/15 Ciprofloxacin* (CIPRO*) 500 Mg Tablet, 500 MG PO BID, #20 TAB Prov:Russell (Vanchtein)Porsche ATTENDING PSYCHIATRIST 07/28/15 Levofloxacin* (LEVAQUIN*) 750 Mg Tablet, 750 MG IVPB DAILY for 4 Days, TAB Prov:ARTSRUNYAN,KYLEE N.P. 01/27/15 Aspirin* (ASPIR 81*) 81 Mg Tablet.dr, 81 MG ORAL DAILY for 30 Days, TAB Prov:ARTSRUNYAN,KYLEE N.P. 01/27/15 Ranitidine Hcl* (ZANTAC*) 150 Mg Tab, 150 MG GT TWICE A DAY for 30 Days, TAB Prov:ARTSRUNYAN,KYLEE N.P. 01/27/15 Ferrous Sulfate (Ferrous Sulfate) 300 Mg/5 Ml Liqd, 300 MG GT TID for 30 Days, ML Prov:ARTSRUNYAN,KYLEE N.P. 01/27/15 Zinc Sulfate (ZINC SULFATE*) 220 Mg Cap, 220 MG ORAL DAILY for 30 Days, CAP Prov:ARTSRUNYAN,KYLEE N.P. 12/01/14 Reported Medications Docusate Sodium (DOCU LIQUID) 50 Mg/5 Ml Liquid, #473 08/08/16 Fluticasone Propionate (Fluticasone Propionate) 16 Gm [place].susp, #16 08/08/16 Ferrous Sulfate (Ferrous Sulfate) 220 Mg/5 Ml Elixir, #150 08/08/16 Oxybutynin Chloride (OXYBUTYNIN CHLORIDE) 5 Mg/5 Ml Syrup, #300 08/08/16 [IV antibiotic] No Conflict Check 08/07/16 Cholecalciferol (Vitamin D3) (VITAMIN D-3) 2,000 Unit Capsule, 5000 UNIT PO, CAP 07/24/15 Omeprazole (OMEPRAZOLE) 40 Mg Capsule.dr, 40 MG GT DAILY, CAP 07/24/15 Acetaminophen (ACETAMINOPHEN 8 HOUR) 650 Mg Tablet.er, 650 MG GT Q8H, TAB 07/24/15 Ascorbic Acid* (ASCORBIC ACID*) 500 Mg Tablet, 500 MG GT DAILY, TAB 12/13/14 Magnesium Oxide (MAGNESIUM OXIDE) 400 Mg Tablet, 400 MG ORAL BID, #30 TAB 0 Refills 11/28/14 Vitamin B Complex & Vit C No.3 (B COMPLEX WITH VITAMIN C) 1 Each Capsule, 1 TAB ORAL DAILY, #30 TAB 0 Refills 11/28/14 Cholecalciferol (Vitamin D3)* (VITAMIN D*) 1,000 Unit Tablet, 5000 UNITS ORAL DAILY, TAB 11/28/14 Albuterol Sulfate* (ALBUTEROL SULFATE HHN*) 2.5 Mg/3 Ml Vial.neb, 3 ML INH Q4H Y for Shortness of Breath, EA 04/20/14 Oxybutynin Chloride (Oxybutynin Chloride) 10 Mg Tab, 5 MG ORAL TID, TAB 04/20/14 Docusate Sodium* (COLACE*) 100 Mg Capsule, 100 MG ORAL TWICE A DAY, CAP 04/20/14 Mineral Oil/Petrolatum,White (ARTIFICIAL TEARS EYE OINT) 3.5 Gm Oint...g., 3.5 GM BOTH EYES QHS, GM 04/20/14 Acetaminophen (Acetaminophen) 650 Mg/20.3 Ml Soln, 650 MG ORAL Q4HR Y for Fever/ Headache/Mild Pain, ML 0 Refills 04/20/14 Med list reviewed/reconciled: Yes Allergies: Coded Allergies: LATEX (Verified Allergy, Mild, 08/31/13) MEROPENEM (Unverified Allergy, Mild, Rash, 11/27/14) SULFAMETHOXAZOLE (Unverified Allergy, Unknown, 07/24/15) TRIMETHOPRIM (Unverified Allergy, Unknown, 07/24/15) VANCOMYCIN (Verified Adverse Reaction, Intermediate, Hives/Red man syndrome, 08/08/16) Red man syndrome Uncoded Allergies: bacrtrim (Allergy, Unknown, 07/24/15) Patient History Limited by: medical condition History Provided By: Family Member, Medical Record PMH Narrative Past Medical History: none, see triage record, old chart reviewed Past Surgical History: other - G-tube, trach Social History: Denies: alcohol use, smoking Last Menstrual Period: One week ago Now: No Immunizations: UTD Reviewed Nursing Documentation: PMH: Agreed Nursing Documentation-PMH Hx COPD: Yes - respiratory failure Hx Cancer: No Hx Gastrointestinal Problems: Yes - Gastrostomy tube, Hx Neurological Problems: Yes - hydrocephalus Hx Brain Shunt: Yes - Ventriculoperitoneal Shunt Review of Systems All Other Systems: limited Physical Exam Vital Signs Date Time Temp Pulse Resp B/P Pulse Ox O2 Delivery O2 Flow Rate FiO2 08/07/16 07:28 102.4 139 20 104/71 100 Room Air 08/08/16 04:00 5.0 08/08/16 22:09 28 Sp02 EP Interpretation: reviewed General Appearance: normal inspection, well appearing, alert Head: normocephalic EENT: normal ENT inspection Neck: supple Respiratory: no respiratory distress Gastrointestinal: gt - see HPI. Genitourinary: no CVA tenderness Skin: normal inspection, normal color, no rash, warm/dry Lymphatic: normal inspection Current Medications Current Medications Medications (Trade) Dose Ordered Sig/Hedy Route PRN Reason Start Time Stop Time Status Last Admin Dose Admin Acetaminophen (Tylenol) 650 mg Q4H PRN ORAL FEVER 08/09/16 08:30 09/08/16 08:29 Albuterol/ Ipratropium (DuoNeb 0.5-3(2.5)mg/3ml) 3 ml Q4H PRN HHN Shortness of Breath 08/09/16 07:41 08/14/16 07:40 Azithromycin 500 mg/Dextrose 275 ml @ 275 mls/hr Q24HRS IV 08/09/16 13:00 08/14/16 13:59 08/09/16 14:27 Ceftazidime/ Dextrose (Fortaz/D5W) 55 ml @ 110 mls/hr Q8HR IV 08/09/16 14:00 08/16/16 13:59 Dextrose (Dextrose 50%) STAT PRN IV Hypoglycemia 08/09/16 07:40 09/08/16 07:39 Heparin Sodium (Porcine) (Heparin 5000 units/ml) 5,000 units EVERY 12 HOURS SUBQ 08/09/16 09:00 09/08/16 08:59 08/09/16 09:00 Linezolid (Zyvox) 600 mg EVERY 12 HOURS ORAL 08/09/16 09:00 08/14/16 08:59 08/09/16 09:32 Lorazepam (Ativan 2mg/ml 1ml) 2 mg Q2H PRN IV For Anxiety 08/09/16 07:41 08/16/16 07:40 Morphine Sulfate (Morphine Sulfate) 4 mg Q4H PRN IVP Severe Pain (Pain Scale 7-10) 08/09/16 07:41 08/16/16 07:40 Ondansetron HCl (Zofran) 4 mg Q6H PRN IVP Nausea & Vomiting 08/09/16 07:41 09/08/16 07:40 Oxybutynin Chloride (Ditropan) 5 mg BID ORAL 08/10/16 09:00 09/09/16 08:59 UNV Oxybutynin Chloride (Ditropan) 5 mg TID ORAL 08/09/16 09:00 08/09/16 18:00 08/09/16 09:32 Polyethylene Glycol (Miralax) 17 gm DAILYPRN PRN ORAL Constipation 08/09/16 07:41 09/08/16 07:40 Sodium Chloride 1,000 ml @ 50 mls/hr Q20H IV 08/09/16 08:00 09/08/16 07:59 08/09/16 14:26 Vitamin B Complex (Vitamin B Complex) 1 ea DAILY GT 08/10/16 09:00 09/09/16 08:59 Vitamin D (Vitamin D) 400 intlu DAILY ORAL 08/10/16 09:00 09/09/16 08:59 Zinc Oxide (Zinc Oxide) 1 applic THREE TIMES A DAY TOPIC 08/09/16 18:00 09/08/16 17:59 GI: Plan Problems: (1) Anemia (2) G-tube site cellulitis Plan GT site appears normal with no active s/sx of infection AP CT noted >> no mechanical obstruction ordered zinc oxide ordered iron panel GT care daily/prn dietary consult for bolus TFs added colace monitor LFTs fu labs Discussed with Dr. Fernandez. Thank you for referring this patient, we will follow. Emily Osorio N.P. Aug 09, 2016 15:18
[2016-08-09] MEDS: Zinc Oxide Oint 2oz TOPIC SCH (17:06)
[2016-08-09] MEDS: Docusate 100mg cap ORAL SCH (17:07)
--- NOTE | 2016-08-09 23:58 | Pulmonology Progress Note ---
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 Assessment/Plan Plan Broad Spec Antbx Aspiration precautions Continue Feeding as tolerated tight BP and BG control GI welding specialist Subjective ROS Limited/Unobtainable: Yes Gastrointestinal/Abdominal: Reports: bloating, vomiting Neurologic: Reports: confusion, weakness Allergies: Coded Allergies: LATEX (Verified Allergy, Mild, 08/31/13) MEROPENEM (Unverified Allergy, Mild, Rash, 11/27/14) SULFAMETHOXAZOLE (Unverified Allergy, Unknown, 07/24/15) TRIMETHOPRIM (Unverified Allergy, Unknown, 07/24/15) VANCOMYCIN (Verified Adverse Reaction, Intermediate, Hives/Red man syndrome, 08/08/16) Red man syndrome Objective Last 24 Hour Vital Signs Date Time Temp Pulse Resp B/P Pulse Ox O2 Delivery O2 Flow Rate FiO2 08/09/16 21:17 98.2 116 16 102/61 99 Room Air 08/09/16 20:19 122 18 Room Air 08/09/16 20:18 98 Room Air 21 08/09/16 20:18 Room Air 08/09/16 20:00 98.2 116 16 102/61 99 Room Air 08/09/16 16:00 99.5 112 16 94/63 98 Room Air 08/09/16 12:33 97 Room Air 08/09/16 11:53 96.9 110 19 103/64 97 Trach Collar 08/09/16 08:45 98.4 109 19 94/58 99 Room Air 08/09/16 08:43 98.4 109 19 99 Room Air 08/09/16 06:45 99 Room Air 21 08/09/16 06:45 102 18 Room Air 21 08/09/16 04:00 98.8 114 18 100/64 100 Nasal Cannula 5.0 08/09/16 04:00 124 08/09/16 00:41 99 Trach Collar 6.0 28 08/09/16 00:41 Trach Collar 6.0 28 08/09/16 00:00 97.0 106 16 100/54 100 5.0 08/09/16 00:00 99 Intake and Output 08/08/16 08/09/16 19:00 07:00 Intake Total 1335 ml 755 ml Output Total 700 ml 450 ml Balance 635 ml 305 ml Free Water 200 ml 100 ml IV Total 985 ml 655 ml Tube Feeding 150 ml Output Urine Total 700 ml 450 ml # Bowel Movements 1 General Appearance: no acute distress HEENT: normocephalic, atraumatic, PERRL Respiratory/Chest: chest wall non-tender, decreased breath sounds, accessory muscle use Breasts: no masses Cardiovascular: normal peripheral pulses, normal rate, regular rhythm, no JVD Abdomen: hypoactive bowel sounds, distended, guarding, tender, rebound tenderness Extremities: no cyanosis Skin: no rash, no lesions Neurologic/Psychiatric: responsive, abnormal CN, motor weakness, disoriented, aphasia Microbiology Date/Time Source Procedure Growth Status 08/07/16 08:37 Blood Blood Culture - Preliminary NO GROWTH AFTER 24 HOURS Resulted 08/07/16 08:15 Blood Blood Culture - Preliminary Resulted 08/08/16 11:30 Nasopharynx Influenza Types A,B Antigen (TEX) - Final Complete 08/07/16 10:01 Sputum Expectorated Gram Stain - Final Resulted 08/07/16 10:01 Sputum Culture - Preliminary Gram Negative Bacillus 1 Usual Upper Respiratory Fatimah Resulted 08/07/16 08:30 Urine,Clean Catch Urine Culture - Final Klebsiella Pneumoniae Complete Current Medications Medications (Trade) Dose Ordered Sig/Hedy Route PRN Reason Start Time Stop Time Status Last Admin Dose Admin Acetaminophen (Tylenol) 650 mg Q4H PRN ORAL FEVER 08/09/16 08:30 09/08/16 08:29 Albuterol/ Ipratropium (DuoNeb 0.5-3(2.5)mg/3ml) 3 ml Q4H PRN HHN Shortness of Breath 08/09/16 07:41 08/14/16 07:40 Azithromycin 500 mg/Dextrose 275 ml @ 275 mls/hr Q24HRS IV 08/09/16 13:00 08/14/16 13:59 08/09/16 14:27 Ceftazidime/ Dextrose (Fortaz/D5W) 55 ml @ 110 mls/hr Q8HR IV 08/09/16 14:00 08/16/16 13:59 08/09/16 21:07 Dextrose (Dextrose 50%) STAT PRN IV Hypoglycemia 08/09/16 07:40 09/08/16 07:39 Docusate Sodium (Colace) 100 mg TID ORAL 08/09/16 18:00 09/08/16 17:59 08/09/16 17:07 Heparin Sodium (Porcine) (Heparin 5000 units/ml) 5,000 units EVERY 12 HOURS SUBQ 08/09/16 09:00 09/08/16 08:59 08/09/16 21:19 Linezolid (Zyvox) 600 mg EVERY 12 HOURS ORAL 08/09/16 09:00 08/14/16 08:59 08/09/16 21:07 Lorazepam (Ativan 2mg/ml 1ml) 2 mg Q2H PRN IV For Anxiety 08/09/16 07:41 08/16/16 07:40 Morphine Sulfate (Morphine Sulfate) 4 mg Q4H PRN IVP Severe Pain (Pain Scale 7-10) 08/09/16 07:41 08/16/16 07:40 Ondansetron HCl (Zofran) 4 mg Q6H PRN IVP Nausea & Vomiting 08/09/16 07:41 09/08/16 07:40 Oxybutynin Chloride (Ditropan) 5 mg BID ORAL 08/09/16 18:00 09/08/16 17:59 08/09/16 17:07 Polyethylene Glycol (Miralax) 17 gm DAILYPRN PRN ORAL Constipation 08/09/16 07:41 09/08/16 07:40 Sodium Chloride 1,000 ml @ 50 mls/hr Q20H IV 08/09/16 08:00 09/08/16 07:59 08/09/16 14:26 Vitamin B Complex (Vitamin B Complex) 1 ea DAILY GT 08/10/16 09:00 09/09/16 08:59 Vitamin D (Vitamin D) 400 intlu DAILY ORAL 08/10/16 09:00 09/09/16 08:59 Zinc Oxide (Zinc Oxide) 1 applic THREE TIMES A DAY TOPIC 08/09/16 18:00 09/08/16 17:59 08/09/16 17:06 SHEYLA CAMPOS Aug 09, 2016 23:58
[2016-08-10] VITALS: BP 95/66
[2016-08-10 04:00] VITALS: BP 96/91
[2016-08-10 07:28] LABS: MEAN CORPUSCULAR HEMOGLOBIN 29.7 PG (27.0-31.0); MEAN CORPUSCULAR HGB CONC 32.4 G/DL (32.0-36.0); MEAN CORPUSCULAR VOLUME 92 FL (80-99); MEAN PLATELET VOLUME 7.8 FL (6.5-10.1); PLATELET COUNT 212 K/UL (150-450); RED BLOOD COUNT 3.57 M/UL (4.20-5.40); RED CELL DISTRIBUTION WIDTH 12.6 % (11.6-14.8); WHITE BLOOD COUNT 6.1 K/UL (4.8-10.8)
[2016-08-10 07:52] LABS: HEMOLYSIS 4; IRON 69 ug/dL (37-145); TOTAL IRON BINDING CAPACITY 214 ug/dL (250-400)
[2016-08-10 07:57] LABS: ALANINE AMINOTRANSFERASE 33 U/L (3-33); ANION GAP 16 (5-15); ASPARTATE AMINO TRANSFERASE 20 U/L (5-40); CALCIUM 8.9 mg/dL (8.6-10.2); CARBON DIOXIDE 24 mEQ/L (20-30); CHLORIDE 99 mEQ/L (98-107); CREATININE 0.4 mg/dL (0.5-0.9); GLOMERULAR FILTRATION RATE > 60 mL/min (>60); POTASSIUM 3.9 mEQ/L (3.4-4.9); SODIUM 139 mEQ/L (135-145); TOTAL PROTEIN 6.8 g/dL (6.6-8.7)
[2016-08-10 08:00] VITALS: BP 100/57
[2016-08-10 09:08] LABS: BAND NEUTROPHILS % (MANUAL) 0 % (0-8); BASOPHILS % (MANUAL) 0 % (0-2); EOSINOPHILS % (MANUAL) 3 % (0-3); LYMPHOCYTES % (MANUAL) 47 % (20-45); NEUTROPHILS % (MANUAL) 42 % (45-75); PLATELET ESTIMATE ADEQUATE; PLATELET MORPHOLOGY NORMAL; TOTAL CELLS COUNTED 100
[2016-08-10] MEDS: Oxybutynin 5mg tab ORAL SCH ×2 (09:27→17:39)
[2016-08-10] MEDS: Vitamin D 400 INTLU TAB ORAL SCH (09:27)
[2016-08-10] MEDS: Docusate 100mg cap ORAL SCH ×2 (09:27→13:16)
[2016-08-10] MEDS: Heparin 5000 units/ml inj SUBQ SCH ×2 (09:30→20:33)
[2016-08-10] MEDS: Zinc Oxide Oint 2oz TOPIC SCH ×3 (09:48→17:40)
[2016-08-10 12:00] VITALS: BP 110/71
[2016-08-10] MEDS: Azithromycin 500 MG in D5W 275 ML IV SCH (13:16)
--- NOTE | 2016-08-10 14:40 | GI Progress Note ---
Assessment/Plan Problems: (1) Anemia ICD Codes: D64.9 - Anemia, unspecified SNOMED: 796048672 (2) G-tube site cellulitis ICD Codes: K94.22 - Gastrostomy infection; L03.319 - Cellulitis of trunk, unspecified SNOMED: 254477384, 386315449 (3) Sepsis ICD Codes: A41.9 - Sepsis SNOMED: 98746316 Status: stable, unchanged Status Narrative Discussed with Dr. Fernandez. Assessment/Plan GT site appears normal with no active s/sx of infection AP CT noted >> no mechanical obstruction ok for DC per GI standpoint cont zinc oxide iron panel unremarkable dietary consult for bolus TFs colace abx fu labs Subjective Gastrointestinal/Abdominal: Reports: no symptoms Subjective limited Objective Last 24 Hour Vital Signs Date Time Temp Pulse Resp B/P Pulse Ox O2 Delivery O2 Flow Rate FiO2 08/10/16 13:28 Room Air 08/10/16 13:28 97 Room Air 08/10/16 12:00 98.2 93 20 110/71 100 Trach Collar 08/10/16 08:00 98.4 100 19 100/57 99 Trach Collar 08/10/16 07:00 108 18 Room Air 08/10/16 07:00 Room Air 08/10/16 07:00 98 Room Air 08/10/16 04:00 98.5 91 20 96/91 100 Room Air 08/10/16 00:03 98 Room Air 21 08/10/16 00:03 Room Air 08/10/16 00:00 98.2 106 18 95/66 98 Room Air 08/09/16 21:17 98.2 116 16 102/61 99 Room Air 08/09/16 20:19 122 18 Room Air 21 08/09/16 20:18 98 Room Air 21 08/09/16 20:18 Room Air 08/09/16 20:00 98.2 116 16 102/61 99 Room Air 08/09/16 16:00 99.5 112 16 94/63 98 Room Air Intake and Output 08/09/16 08/10/16 19:00 07:00 Intake Total 480 ml 785 ml Output Total 1000 ml 1300 ml Balance -520 ml -515 ml Intake Oral 180 ml Free Water 100 ml IV Total 480 ml 505 ml Output Urine Total 1000 ml 1300 ml Laboratory Tests Test 08/10/16 05:10 White Blood Count 6.1 K/UL (4.8-10.8) Red Blood Count 3.57 M/UL (4.20-5.40) L Hemoglobin 10.6 G/DL (12.0-16.0) L Hematocrit 32.8 % (37.0-47.0) L Mean Corpuscular Volume 92 FL (80-99) Mean Corpuscular Hemoglobin 29.7 PG (27.0-31.0) Mean Corpuscular Hemoglobin Concent 32.4 G/DL (32.0-36.0) Red Cell Distribution Width 12.6 % (11.6-14.8) Platelet Count 212 K/UL (150-450) Mean Platelet Volume 7.8 FL (6.5-10.1) Neutrophils (%) (Auto) % (45.0-75.0) Lymphocytes (%) (Auto) % (20.0-45.0) Monocytes (%) (Auto) % (1.0-10.0) Eosinophils (%) (Auto) % (0.0-3.0) Basophils (%) (Auto) % (0.0-2.0) Differential Total Cells Counted 100 Neutrophils % (Manual) 42 % (45-75) L Lymphocytes % (Manual) 47 % (20-45) H Monocytes % (Manual) 8 % (1-10) Eosinophils % (Manual) 3 % (0-3) Basophils % (Manual) 0 % (0-2) Band Neutrophils 0 % (0-8) Platelet Estimate Adequate Platelet Morphology Normal Red Blood Cell Morphology Normal Sodium Level 139 mEQ/L (135-145) Potassium Level 3.9 mEQ/L (3.4-4.9) Chloride Level 99 mEQ/L (98-107) Carbon Dioxide Level 24 mEQ/L (20-30) Anion Gap 16 (5-15) H Blood Urea Nitrogen 6 mg/dL (7-23) L Creatinine 0.4 mg/dL (0.5-0.9) L Estimat Glomerular Filtration Rate > 60 mL/min (>60) Glucose Level 89 mg/dL (74-106) Calcium Level 8.9 mg/dL (8.6-10.2) Iron Level 69 ug/dL (37-145) Total Iron Binding Capacity 214 ug/dL (250-400) L Percent Iron Saturation 32 % (15-50) Unsaturated Iron Binding 145 ug/dL (112-346) Total Bilirubin 0.4 mg/dL (0.0-1.2) Aspartate Amino Transf (AST/SGOT) 20 U/L (5-40) Alanine Aminotransferase (ALT/SGPT) 33 U/L (3-33) Alkaline Phosphatase 102 U/L (35-104) Total Protein 6.8 g/dL (6.6-8.7) Albumin 3.5 g/dL (3.5-5.2) Globulin 3.3 g/dL Albumin/Globulin Ratio 1.0 (1.0-2.7) Height (Feet): 4 Height (Inches): 11.00 Weight (Pounds): 120 General Appearance: no apparent distress, alert Cardiovascular: normal rate Respiratory/Chest: normal breath sounds, no respiratory distress Abdominal Exam: normal bowel sounds, non tender, soft, GT site - c/d/i Emily Osorio N.P. Aug 10, 2016 14:40
[2016-08-10 16:00] VITALS: BP 86/54
[2016-08-10] MEDS: Docusate 100mg tablet GT SCH (17:39)
--- NOTE | 2016-08-10 18:28 | Infectious Diseases Prog Note ---
Assessment/Plan Assessment/Plan SESSMENT: 26y/o female with: // HCAP vs CAP - SCx PSA , NRF - CXR 08/07: Mild left basilar atelectasis. Otherwise no acute cardiopulmonary disease. // Recurrent complicated UTI - UCx K.pneumoniae - Hx of hemorrhagic cystitis, Kleb , Pseudomonas - neurogenic bladder, chronic indwelling sterling // Stage IV sacral decubitus, not grossly infected, healing - h/o ESBL(+) E.coli, sensitive K.pneumoniae, MSSA - MRI(-) osteomyelitis 11/2014 // Negative influenza // Fever - improved, no leukocytosis // BCx :CoNS ( colonizer ) // Sinus tachycardia // Chronic respiratory failure s/p trach, PEG // Spina bifida / paraplegia // Dysphagia SP PEG // MDRO colonized ( VRE, ESBL ) // Multiple ABX allergies - bactrim, vancomycin, meropenem. Tolerates cephalosporins // Full Code PLAN: - continue Zyvox, add Zithro d# 3 , change Ceftaz to Cefepime d# 1 ( pt tolerated Ceftaz ) - monitor CBC, temperatures - monitor Cultures ( Bl ) - wound care Subjective Constitutional: Denies: anorexia, chills, drenching sweats, fatigue, fever, no symptoms, other Allergies: Coded Allergies: LATEX (Verified Allergy, Mild, 08/31/13) MEROPENEM (Unverified Allergy, Mild, Rash, 11/27/14) SULFAMETHOXAZOLE (Unverified Allergy, Unknown, 07/24/15) TRIMETHOPRIM (Unverified Allergy, Unknown, 07/24/15) VANCOMYCIN (Verified Adverse Reaction, Intermediate, Hives/Red man syndrome, 08/08/16) Red man syndrome Objective Vital Signs Last 24 Hour Vital Signs Date Time Temp Pulse Resp B/P Pulse Ox O2 Delivery O2 Flow Rate FiO2 08/10/16 16:00 97.9 100 20 86/54 97 Room Air 08/10/16 13:28 Room Air 08/10/16 13:28 97 Room Air 21 08/10/16 12:00 98.2 93 20 110/71 100 Trach Collar 08/10/16 08:00 98.4 100 19 100/57 99 Trach Collar 08/10/16 07:00 108 18 Room Air 21 08/10/16 07:00 Room Air 08/10/16 07:00 98 Room Air 21 08/10/16 04:00 98.5 91 20 96/91 100 Room Air 08/10/16 00:03 98 Room Air 08/10/16 00:03 Room Air 08/10/16 00:00 98.2 106 18 95/66 98 Room Air 08/09/16 21:17 98.2 116 16 102/61 99 Room Air 08/09/16 20:19 122 18 Room Air 08/09/16 20:18 98 Room Air 21 08/09/16 20:18 Room Air 08/09/16 20:00 98.2 116 16 102/61 99 Room Air Height (Feet): 4 Height (Inches): 11.00 Weight (Pounds): 120 HEENT: anicteric Respiratory/Chest: lungs clear Cardiovascular: regular rhythm Abdomen: no organomegaly Microbiology Date/Time Source Procedure Growth Status 08/08/16 11:30 Nasopharynx Influenza Types A,B Antigen (TEX) - Final Complete Laboratory Tests Test 08/10/16 05:10 White Blood Count 6.1 K/UL (4.8-10.8) Red Blood Count 3.57 M/UL (4.20-5.40) L Hemoglobin 10.6 G/DL (12.0-16.0) L Hematocrit 32.8 % (37.0-47.0) L Mean Corpuscular Volume 92 FL (80-99) Mean Corpuscular Hemoglobin 29.7 PG (27.0-31.0) Mean Corpuscular Hemoglobin Concent 32.4 G/DL (32.0-36.0) Red Cell Distribution Width 12.6 % (11.6-14.8) Platelet Count 212 K/UL (150-450) Mean Platelet Volume 7.8 FL (6.5-10.1) Neutrophils (%) (Auto) % (45.0-75.0) Lymphocytes (%) (Auto) % (20.0-45.0) Monocytes (%) (Auto) % (1.0-10.0) Eosinophils (%) (Auto) % (0.0-3.0) Basophils (%) (Auto) % (0.0-2.0) Differential Total Cells Counted 100 Neutrophils % (Manual) 42 % (45-75) L Lymphocytes % (Manual) 47 % (20-45) H Monocytes % (Manual) 8 % (1-10) Eosinophils % (Manual) 3 % (0-3) Basophils % (Manual) 0 % (0-2) Band Neutrophils 0 % (0-8) Platelet Estimate Adequate Platelet Morphology Normal Red Blood Cell Morphology Normal Sodium Level 139 mEQ/L (135-145) Potassium Level 3.9 mEQ/L (3.4-4.9) Chloride Level 99 mEQ/L (98-107) Carbon Dioxide Level 24 mEQ/L (20-30) Anion Gap 16 (5-15) H Blood Urea Nitrogen 6 mg/dL (7-23) L Creatinine 0.4 mg/dL (0.5-0.9) L Estimat Glomerular Filtration Rate > 60 mL/min (>60) Glucose Level 89 mg/dL (74-106) Calcium Level 8.9 mg/dL (8.6-10.2) Iron Level 69 ug/dL (37-145) Total Iron Binding Capacity 214 ug/dL (250-400) L Percent Iron Saturation 32 % (15-50) Unsaturated Iron Binding 145 ug/dL (112-346) Total Bilirubin 0.4 mg/dL (0.0-1.2) Aspartate Amino Transf (AST/SGOT) 20 U/L (5-40) Alanine Aminotransferase (ALT/SGPT) 33 U/L (3-33) Alkaline Phosphatase 102 U/L (35-104) Total Protein 6.8 g/dL (6.6-8.7) Albumin 3.5 g/dL (3.5-5.2) Globulin 3.3 g/dL Albumin/Globulin Ratio 1.0 (1.0-2.7) Current Medications Medications (Trade) Dose Ordered Sig/Hedy Route PRN Reason Start Time Stop Time Status Last Admin Dose Admin Acetaminophen (Tylenol) 650 mg Q4H PRN ORAL FEVER 08/09/16 08:30 09/08/16 08:29 Albuterol/ Ipratropium (DuoNeb 0.5-3(2.5)mg/3ml) 3 ml Q4H PRN HHN Shortness of Breath 08/09/16 07:41 08/14/16 07:40 Azithromycin 500 mg/Dextrose 275 ml @ 275 mls/hr Q24HRS IV 08/09/16 13:00 08/14/16 13:59 08/10/16 13:16 Ceftazidime/ Dextrose (Fortaz/D5W) 55 ml @ 110 mls/hr Q8HR IV 08/09/16 14:00 08/16/16 13:59 08/10/16 14:25 Dextrose (Dextrose 50%) STAT PRN IV Hypoglycemia 08/09/16 07:40 09/08/16 07:39 Docusate Sodium (Colace) 100 mg TID GT 08/10/16 18:00 09/08/16 17:59 08/10/16 17:39 Heparin Sodium (Porcine) (Heparin 5000 units/ml) 5,000 units EVERY 12 HOURS SUBQ 08/09/16 09:00 09/08/16 08:59 08/10/16 09:30 Linezolid (Zyvox) 600 mg EVERY 12 HOURS ORAL 08/09/16 09:00 08/14/16 08:59 08/10/16 09:27 Lorazepam (Ativan 2mg/ml 1ml) 2 mg Q2H PRN IV For Anxiety 08/09/16 07:41 08/16/16 07:40 Morphine Sulfate (Morphine Sulfate) 4 mg Q4H PRN IVP Severe Pain (Pain Scale 7-10) 08/09/16 07:41 08/16/16 07:40 Ondansetron HCl (Zofran) 4 mg Q6H PRN IVP Nausea & Vomiting 08/09/16 07:41 09/08/16 07:40 Oxybutynin Chloride (Ditropan) 5 mg BID ORAL 08/09/16 18:00 09/08/16 17:59 08/10/16 17:39 Polyethylene Glycol (Miralax) 17 gm DAILYPRN PRN ORAL Constipation 08/09/16 07:41 09/08/16 07:40 Sodium Chloride 1,000 ml @ 50 mls/hr Q20H IV 08/09/16 08:00 09/08/16 07:59 08/10/16 16:03 Vitamin B Complex (Vitamin B Complex) 1 ea DAILY GT 08/10/16 09:00 09/09/16 08:59 08/10/16 09:27 Vitamin D (Vitamin D) 400 intlu DAILY ORAL 1/25/17 09:00 09/09/16 08:59 08/10/16 09:27 Zinc Oxide (Zinc Oxide) 1 applic THREE TIMES A DAY TOPIC 08/09/16 18:00 09/08/16 17:59 08/10/16 17:40 ANDRES NUNEZ M.D. Aug 10, 2016 18:28
[2016-08-10 20:00] VITALS: BP 109/74
[2016-08-10] MEDS: Cefepime HCl 2 GM in D5W 110 ML IVPB SCH (20:32)
--- NOTE | 2016-08-10 22:53 | Pulmonology Progress Note ---
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 (5) G-tube site cellulitis Assessment/Plan improvong afebrile tolerating feeing may go home with iv antibiotics Subjective ROS Limited/Unobtainable: Yes Interval Events: comfortable Allergies: Coded Allergies: LATEX (Verified Allergy, Mild, 08/31/13) MEROPENEM (Unverified Allergy, Mild, Rash, 11/27/14) SULFAMETHOXAZOLE (Unverified Allergy, Unknown, 07/24/15) TRIMETHOPRIM (Unverified Allergy, Unknown, 07/24/15) VANCOMYCIN (Verified Adverse Reaction, Intermediate, Hives/Red man syndrome, 08/08/16) Red man syndrome Objective Last 24 Hour Vital Signs Date Time Temp Pulse Resp B/P Pulse Ox O2 Delivery O2 Flow Rate FiO2 08/10/16 20:00 98.2 97 22 109/74 98 Room Air 08/10/16 19:15 100 20 Room Air 08/10/16 19:15 98 Room Air 21 08/10/16 19:15 Room Air 08/10/16 16:00 97.9 100 20 86/54 97 Room Air 08/10/16 13:28 Room Air 08/10/16 13:28 97 Room Air 21 08/10/16 12:00 98.2 93 20 110/71 100 Trach Collar 08/10/16 08:00 98.4 100 19 100/57 99 Trach Collar 08/10/16 07:00 108 18 Room Air 08/10/16 07:00 Room Air 08/10/16 07:00 98 Room Air 08/10/16 04:00 98.5 91 20 96/91 100 Room Air 08/10/16 00:03 98 Room Air 21 08/10/16 00:03 Room Air 08/10/16 00:00 98.2 106 18 95/66 98 Room Air Intake and Output 08/09/16 08/10/16 19:00 07:00 Intake Total 480 ml 785 ml Output Total 1000 ml 1300 ml Balance -520 ml -515 ml Intake Oral 180 ml Free Water 100 ml IV Total 480 ml 505 ml Output Urine Total 1000 ml 1300 ml General Appearance: WD/WN HEENT: normocephalic, status post trach Respiratory/Chest: lungs clear Cardiovascular: normal peripheral pulses, regular rhythm Abdomen: normal bowel sounds, no organomegaly Microbiology Date/Time Source Procedure Growth Status 08/08/16 11:30 Nasopharynx Influenza Types A,B Antigen (TEX) - Final Complete Laboratory Tests 08/10/16 05:10: White Blood Count 6.1, Red Blood Count 3.57L, Hemoglobin 10.6L, Hematocrit 32.8L , Mean Corpuscular Volume 92, Mean Corpuscular Hemoglobin 29.7, Mean Corpuscular Hemoglobin Concent 32.4, Red Cell Distribution Width 12.6, Platelet Count 212, Mean Platelet Volume 7.8, Neutrophils (%) (Auto) , Lymphocytes (%) ( Auto) , Monocytes (%) (Auto) , Eosinophils (%) (Auto) , Basophils (%) (Auto) , Differential Total Cells Counted 100, Neutrophils % (Manual) 42L, Lymphocytes % (Manual) 47H, Monocytes % (Manual) 8, Eosinophils % (Manual) 3, Basophils % ( Manual) 0, Band Neutrophils 0, Platelet Estimate Adequate, Platelet Morphology Normal, Red Blood Cell Morphology Normal, Sodium Level 139, Potassium Level 3.9 , Chloride Level 99, Carbon Dioxide Level 24, Anion Gap 16H, Blood Urea Nitrogen 6L, Creatinine 0.4L, Estimat Glomerular Filtration Rate > 60, Glucose Level 89, Calcium Level 8.9, Iron Level 69, Total Iron Binding Capacity 214L, Percent Iron Saturation 32, Unsaturated Iron Binding 145, Total Bilirubin 0.4, Aspartate Amino Transf (AST/SGOT) 20, Alanine Aminotransferase (ALT/SGPT) 33, Alkaline Phosphatase 102, Total Protein 6.8, Albumin 3.5, Globulin 3.3, Albumin/ Globulin Ratio 1.0 Current Medications Medications (Trade) Dose Ordered Sig/Hedy Route PRN Reason Start Time Stop Time Status Last Admin Dose Admin Acetaminophen (Tylenol) 650 mg Q4H PRN ORAL FEVER 08/09/16 08:30 09/08/16 08:29 Albuterol/ Ipratropium (DuoNeb 0.5-3(2.5)mg/3ml) 3 ml Q4H PRN HHN Shortness of Breath 08/09/16 07:41 08/14/16 07:40 Azithromycin/ Dextrose (Zithromax/D5W) 275 ml @ 275 mls/hr Q24HRS IV 08/09/16 13:00 08/14/16 13:59 08/10/16 13:16 Cefepime HCl/ Dextrose (Maxipime/D5W) 110 ml @ 220 mls/hr EVERY 12 HOURS IVPB 08/10/16 21:00 08/17/16 20:59 08/10/16 20:32 Dextrose (Dextrose 50%) STAT PRN IV Hypoglycemia 08/09/16 07:40 09/08/16 07:39 Docusate Sodium 100 mg 100 mg TID GT 08/10/16 18:00 09/08/16 17:59 08/10/16 17:39 Heparin Sodium (Porcine) (Heparin 5000 units/ml) 5,000 units EVERY 12 HOURS SUBQ 08/09/16 09:00 09/08/16 08:59 08/10/16 20:33 Linezolid (Zyvox) 600 mg EVERY 12 HOURS ORAL 08/09/16 09:00 08/14/16 08:59 08/10/16 20:32 Lorazepam (Ativan 2mg/ml 1ml) 2 mg Q2H PRN IV For Anxiety 08/09/16 07:41 08/16/16 07:40 Morphine Sulfate (Morphine Sulfate) 4 mg Q4H PRN IVP Severe Pain (Pain Scale 7-10) 08/09/16 07:41 08/16/16 07:40 Ondansetron HCl (Zofran) 4 mg Q6H PRN IVP Nausea & Vomiting 08/09/16 07:41 09/08/16 07:40 Oxybutynin Chloride (Ditropan) 5 mg BID ORAL 08/09/16 18:00 09/08/16 17:59 08/10/16 17:39 Polyethylene Glycol (Miralax) 17 gm DAILYPRN PRN ORAL Constipation 08/09/16 07:41 09/08/16 07:40 Sodium Chloride 1,000 ml @ 50 mls/hr Q20H IV 08/09/16 08:00 09/08/16 07:59 08/10/16 16:03 Vitamin B Complex (Vitamin B Complex) 1 ea DAILY GT 08/10/16 09:00 09/09/16 08:59 08/10/16 09:27 Vitamin D (Vitamin D) 400 intlu DAILY ORAL 08/10/16 09:00 09/09/16 08:59 08/10/16 09:27 Zinc Oxide (Zinc Oxide) 1 applic THREE TIMES A DAY TOPIC 08/09/16 18:00 09/08/16 17:59 08/10/16 17:40 SHEYLA CAMPOS Aug 10, 2016 22:53
[2016-08-11] VITALS: BP 98/55
[2016-08-11 04:00] VITALS: BP 103/65
[2016-08-11 07:33] LABS: BASOPHILS % (AUTO) 0.3 % (0.0-2.0); EOSINOPHILS % (AUTO) 5.6 % (0.0-3.0); LYMPHOCYTES % (AUTO) 50.9 % (20.0-45.0); MEAN CORPUSCULAR HEMOGLOBIN 30.8 PG (27.0-31.0); MEAN CORPUSCULAR HGB CONC 33.7 G/DL (32.0-36.0); MEAN CORPUSCULAR VOLUME 91 FL (80-99); MEAN PLATELET VOLUME 7.7 FL (6.5-10.1); MONOCYTES % (AUTO) 5.7 % (1.0-10.0); NEUTROPHILS % (AUTO) 37.4 % (45.0-75.0); PLATELET COUNT 229 K/UL (150-450); RED BLOOD COUNT 3.53 M/UL (4.20-5.40); RED CELL DISTRIBUTION WIDTH 12.3 % (11.6-14.8); WHITE BLOOD COUNT 5.9 K/UL (4.8-10.8)
[2016-08-11 08:00] VITALS: BP 95/58
[2016-08-11 08:04] LABS: ANION GAP 17 (5-15); CALCIUM 9.5 mg/dL (8.6-10.2); CARBON DIOXIDE 24 mEQ/L (20-30); CHLORIDE 99 mEQ/L (98-107); CREATININE 0.5 mg/dL (0.5-0.9); GLOMERULAR FILTRATION RATE > 60 mL/min (>60); HEMOLYSIS 1; POTASSIUM 4.3 mEQ/L (3.4-4.9); SODIUM 140 mEQ/L (135-145)
[2016-08-11] MEDS: Docusate 100mg tablet GT SCH ×3 (09:22→17:43)
[2016-08-11] MEDS: Zinc Oxide Oint 2oz TOPIC SCH (09:22)
[2016-08-11] MEDS: Oxybutynin 5mg tab ORAL SCH ×2 (09:22→17:43)
[2016-08-11] MEDS: Vitamin D 400 INTLU TAB ORAL SCH (09:22)
[2016-08-11] MEDS: Cefepime HCl 2 GM in D5W 110 ML IVPB SCH ×2 (09:23→20:21)
[2016-08-11] MEDS: Heparin 5000 units/ml inj SUBQ SCH ×2 (09:24→20:22)
--- NOTE | 2016-08-11 10:32 | Infectious Diseases Prog Note ---
Assessment/Plan Assessment/Plan ASSESSMENT: 26y/o female with: // HCAP vs CAP - SCx PSA - CXR 08/07: Mild left basilar atelectasis. Otherwise no acute cardiopulmonary disease. // Recurrent complicated UTI - UCx K.pneumoniae - Hx of hemorrhagic cystitis, Kleb , Pseudomonas - neurogenic bladder, chronic indwelling sterling // Stage IV sacral decubitus, not grossly infected, healing - h/o ESBL(+) E.coli, sensitive K.pneumoniae, MSSA - MRI(-) osteomyelitis 11/2014 // Negative influenza // Fever SP // BCx :CoNS ( contaminant ) // Sinus tachycardia // Chronic respiratory failure s/p trach, PEG // Spina bifida / paraplegia // Dysphagia SP PEG // MDRO colonized ( VRE, ESBL ) // Multiple ABX allergies - bactrim, vancomycin, meropenem. Tolerates cephalosporins // Full Code PLAN: - continue Zithro d# 4 / 5 Cefepime d# ( pt tolerated Ceftaz ) and DC Zyvox d# 4 ( 08/10 SP Ceftaz d# 3 ) - monitor CBC, temperatures - monitor Cultures ( Bl ) - wound care Subjective Constitutional: Denies: anorexia, chills, drenching sweats, fatigue, fever, no symptoms, other Allergies: Coded Allergies: LATEX (Verified Allergy, Mild, 08/31/13) MEROPENEM (Unverified Allergy, Mild, Rash, 11/27/14) SULFAMETHOXAZOLE (Unverified Allergy, Unknown, 07/24/15) TRIMETHOPRIM (Unverified Allergy, Unknown, 07/24/15) VANCOMYCIN (Verified Adverse Reaction, Intermediate, Hives/Red man syndrome, 08/08/16) Red man syndrome Objective Vital Signs Last 24 Hour Vital Signs Date Time Temp Pulse Resp B/P Pulse Ox O2 Delivery O2 Flow Rate FiO2 08/11/16 08:30 105 18 Room Air 21 08/11/16 08:30 Room Air 08/11/16 08:30 100 Room Air 21 08/11/16 08:00 98.1 105 19 95/58 99 Trach Collar 08/11/16 04:00 98.1 106 20 103/65 99 Room Air 08/11/16 04:00 98.1 106 20 103/65 99 Room Air 08/11/16 01:00 96 Room Air 21 08/11/16 01:00 Room Air 08/11/16 00:00 98.8 96 20 98/55 98 Room Air 08/11/16 00:00 98.0 96 20 98/55 98 Room Air 08/10/16 20:00 98.2 97 22 109/74 98 Room Air 08/10/16 19:15 100 20 Room Air 21 08/10/16 19:15 98 Room Air 21 08/10/16 19:15 Room Air 08/10/16 16:00 97.9 100 20 86/54 97 Room Air 08/10/16 13:28 Room Air 08/10/16 13:28 97 Room Air 21 08/10/16 12:00 98.2 93 20 110/71 100 Trach Collar Height (Feet): 4 Height (Inches): 11.00 Weight (Pounds): 120 HEENT: anicteric Respiratory/Chest: lungs clear Cardiovascular: regular rhythm Abdomen: soft, non tender Microbiology Date/Time Source Procedure Growth Status 08/08/16 11:30 Nasopharynx Influenza Types A,B Antigen (TEX) - Final Complete Laboratory Tests Test 08/11/16 05:40 White Blood Count 5.9 K/UL (4.8-10.8) Red Blood Count 3.53 M/UL (4.20-5.40) L Hemoglobin 10.9 G/DL (12.0-16.0) L Hematocrit 32.2 % (37.0-47.0) L Mean Corpuscular Volume 91 FL (80-99) Mean Corpuscular Hemoglobin 30.8 PG (27.0-31.0) Mean Corpuscular Hemoglobin Concent 33.7 G/DL (32.0-36.0) Red Cell Distribution Width 12.3 % (11.6-14.8) Platelet Count 229 K/UL (150-450) Mean Platelet Volume 7.7 FL (6.5-10.1) Neutrophils (%) (Auto) 37.4 % (45.0-75.0) L Lymphocytes (%) (Auto) 50.9 % (20.0-45.0) H Monocytes (%) (Auto) 5.7 % (1.0-10.0) Eosinophils (%) (Auto) 5.6 % (0.0-3.0) H Basophils (%) (Auto) 0.3 % (0.0-2.0) Sodium Level 140 mEQ/L (135-145) Potassium Level 4.3 mEQ/L (3.4-4.9) Chloride Level 99 mEQ/L (98-107) Carbon Dioxide Level 24 mEQ/L (20-30) Anion Gap 17 (5-15) H Blood Urea Nitrogen 9 mg/dL (7-23) Creatinine 0.5 mg/dL (0.5-0.9) Estimat Glomerular Filtration Rate > 60 mL/min (>60) Glucose Level 78 mg/dL (74-106) Calcium Level 9.5 mg/dL (8.6-10.2) Current Medications Medications (Trade) Dose Ordered Sig/Hedy Route PRN Reason Start Time Stop Time Status Last Admin Dose Admin Acetaminophen (Tylenol) 650 mg Q4H PRN ORAL FEVER 08/09/16 08:30 09/08/16 08:29 Albuterol/ Ipratropium (DuoNeb 0.5-3(2.5)mg/3ml) 3 ml Q4H PRN HHN Shortness of Breath 08/09/16 07:41 08/14/16 07:40 Azithromycin/ Dextrose (Zithromax/D5W) 275 ml @ 275 mls/hr Q24HRS IV 08/09/16 13:00 08/14/16 13:59 08/10/16 13:16 Cefepime HCl/ Dextrose (Maxipime/D5W) 110 ml @ 220 mls/hr EVERY 12 HOURS IVPB 08/10/16 21:00 08/17/16 20:59 08/11/16 09:23 Dextrose (Dextrose 50%) STAT PRN IV Hypoglycemia 08/09/16 07:40 09/08/16 07:39 Docusate Sodium 100 mg 100 mg TID GT 08/10/16 18:00 09/08/16 17:59 08/11/16 09:22 Heparin Sodium (Porcine) (Heparin 5000 units/ml) 5,000 units EVERY 12 HOURS SUBQ 08/09/16 09:00 09/08/16 08:59 08/11/16 09:24 Linezolid (Zyvox) 600 mg EVERY 12 HOURS ORAL 08/09/16 09:00 08/14/16 08:59 08/11/16 09:22 Lorazepam (Ativan 2mg/ml 1ml) 2 mg Q2H PRN IV For Anxiety 08/09/16 07:41 08/16/16 07:40 Morphine Sulfate (Morphine Sulfate) 4 mg Q4H PRN IVP Severe Pain (Pain Scale 7-10) 08/09/16 07:41 08/16/16 07:40 Ondansetron HCl (Zofran) 4 mg Q6H PRN IVP Nausea & Vomiting 08/09/16 07:41 09/08/16 07:40 Oxybutynin Chloride (Ditropan) 5 mg BID ORAL 08/09/16 18:00 09/08/16 17:59 08/11/16 09:22 Polyethylene Glycol (Miralax) 17 gm DAILYPRN PRN ORAL Constipation 08/09/16 07:41 09/08/16 07:40 Sodium Chloride 1,000 ml @ 50 mls/hr Q20H IV 08/09/16 08:00 09/08/16 07:59 08/10/16 16:03 Vitamin B Complex (Vitamin B Complex) 1 ea DAILY GT 08/10/16 09:00 09/09/16 08:59 08/11/16 09:22 Vitamin D (Vitamin D) 400 intlu DAILY ORAL 08/10/16 09:00 09/09/16 08:59 08/11/16 09:22 Zinc Oxide (Zinc Oxide) 1 applic THREE TIMES A DAY TOPIC 08/09/16 18:00 09/08/16 17:59 08/11/16 09:22 ANDRES NUNEZ M.D. Aug 11, 2016 10:32
[2016-08-11 12:00] VITALS: BP 96/64
--- NOTE | 2016-08-11 12:36 | Diagnostic Imaging Report ---
APPROVED REPORT CPT Code: 29092 Present Symptoms Lower Extremity Pain: Bilateral Comments: Technically difficult study (bilateral contractures of the hips and knees). BILATERAL: Imaging reveals a patent deep venous system bilaterally. There is no evidence of thrombus within the femoral, popliteal or tibial segments. The greater saphenous veins are also within normal limits. Doppler indicates normal spontaneous flow within these segments.
[2016-08-11] MEDS: Azithromycin 250mg tab ORAL SCH (13:29)
--- NOTE | 2016-08-11 14:23 | GI Progress Note ---
Assessment/Plan Problems: (1) Anemia ICD Codes: D64.9 - Anemia, unspecified SNOMED: 902689033 (2) G-tube site cellulitis ICD Codes: K94.22 - Gastrostomy infection; L03.319 - Cellulitis of trunk, unspecified SNOMED: 352109103, 700310377 (3) Sepsis ICD Codes: A41.9 - Sepsis SNOMED: [id number] Status: stable Status Narrative Discussed with Dr. Fernandez. Assessment/Plan GT site appears normal with no active s/sx of infection AP CT noted >> no mechanical obstruction Swallow video >> SOFT, EASY CHEW WITH THIN LIQUID DIET ok for DC per GI standpoint zinc oxide daily/prn iron panel unremarkable dietary consult for bolus TFs colace abx fu labs Subjective Gastrointestinal/Abdominal: Reports: no symptoms Subjective limited Objective Last 24 Hour Vital Signs Date Time Temp Pulse Resp B/P Pulse Ox O2 Delivery O2 Flow Rate FiO2 08/11/16 12:59 Room Air 08/11/16 12:59 99 Room Air 08/11/16 12:00 97.9 96 19 96/64 96 Trach Collar 08/11/16 08:30 105 18 Room Air 21 08/11/16 08:30 Room Air 08/11/16 08:30 100 Room Air 21 08/11/16 08:00 98.1 105 19 95/58 99 Trach Collar 08/11/16 04:00 98.1 106 20 103/65 99 Room Air 08/11/16 04:00 98.1 106 20 103/65 99 Room Air 08/11/16 01:00 96 Room Air 08/11/16 01:00 Room Air 08/11/16 00:00 98.8 96 20 98/55 98 Room Air 08/11/16 00:00 98.0 96 20 98/55 98 Room Air 08/10/16 20:00 98.2 97 22 109/74 98 Room Air 08/10/16 19:15 100 20 Room Air 21 08/10/16 19:15 98 Room Air 21 08/10/16 19:15 Room Air 08/10/16 16:00 97.9 100 20 86/54 97 Room Air Intake and Output 08/10/16 08/11/16 19:00 07:00 Intake Total 1205 ml 850 ml Output Total 1300 ml 1900 ml Balance -95 ml -1050 ml Intake Oral 480 ml 240 ml IV Total 725 ml 610 ml Output Urine Total 1300 ml 1900 ml Laboratory Tests Test 08/11/16 05:40 White Blood Count 5.9 K/UL (4.8-10.8) Red Blood Count 3.53 M/UL (4.20-5.40) L Hemoglobin 10.9 G/DL (12.0-16.0) L Hematocrit 32.2 % (37.0-47.0) L Mean Corpuscular Volume 91 FL (80-99) Mean Corpuscular Hemoglobin 30.8 PG (27.0-31.0) Mean Corpuscular Hemoglobin Concent 33.7 G/DL (32.0-36.0) Red Cell Distribution Width 12.3 % (11.6-14.8) Platelet Count 229 K/UL (150-450) Mean Platelet Volume 7.7 FL (6.5-10.1) Neutrophils (%) (Auto) 37.4 % (45.0-75.0) L Lymphocytes (%) (Auto) 50.9 % (20.0-45.0) H Monocytes (%) (Auto) 5.7 % (1.0-10.0) Eosinophils (%) (Auto) 5.6 % (0.0-3.0) H Basophils (%) (Auto) 0.3 % (0.0-2.0) Sodium Level 140 mEQ/L (135-145) Potassium Level 4.3 mEQ/L (3.4-4.9) Chloride Level 99 mEQ/L (98-107) Carbon Dioxide Level 24 mEQ/L (20-30) Anion Gap 17 (5-15) H Blood Urea Nitrogen 9 mg/dL (7-23) Creatinine 0.5 mg/dL (0.5-0.9) Estimat Glomerular Filtration Rate > 60 mL/min (>60) Glucose Level 78 mg/dL (74-106) Calcium Level 9.5 mg/dL (8.6-10.2) Height (Feet): 4 Height (Inches): 11.00 Weight (Pounds): 120 General Appearance: no apparent distress, alert Cardiovascular: normal rate Respiratory/Chest: no respiratory distress, other Abdominal Exam: GT site - c/d/i OsorioEmily reveles N.P. Aug 11, 2016 14:23
[2016-08-11 16:00] VITALS: BP 107/64
[2016-08-11] MEDS ORDERED: NS 275ml ONE (16:48)
[2016-08-11] MEDS ORDERED: 1/2 NS 1000ml IV ONE (16:48)
--- NOTE | 2016-08-11 17:40 | Pulmonology Progress Note ---
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 (5) G-tube site cellulitis Assessment/Plan continue Zithro d# 4 / 5 Cefepime d# 2 / ( pt tolerated Ceftaz ) wound care tolerating feeding Subjective Allergies: Coded Allergies: LATEX (Verified Allergy, Mild, 08/31/13) MEROPENEM (Unverified Allergy, Mild, Rash, 11/27/14) SULFAMETHOXAZOLE (Unverified Allergy, Unknown, 07/24/15) TRIMETHOPRIM (Unverified Allergy, Unknown, 07/24/15) VANCOMYCIN (Verified Adverse Reaction, Intermediate, Hives/Red man syndrome, 08/08/16) Red man syndrome Objective Last 24 Hour Vital Signs Date Time Temp Pulse Resp B/P Pulse Ox O2 Delivery O2 Flow Rate FiO2 08/11/16 16:00 98.1 104 22 107/64 98 Room Air 08/11/16 12:59 Room Air 08/11/16 12:59 99 Room Air 21 08/11/16 12:00 97.9 96 19 96/64 96 Trach Collar 08/11/16 08:30 105 18 Room Air 08/11/16 08:30 Room Air 08/11/16 08:30 100 Room Air 21 08/11/16 08:00 98.1 105 19 95/58 99 Trach Collar 08/11/16 04:00 98.1 106 20 103/65 99 Room Air 08/11/16 04:00 98.1 106 20 103/65 99 Room Air 08/11/16 01:00 96 Room Air 08/11/16 01:00 Room Air 08/11/16 00:00 98.8 96 20 98/55 98 Room Air 08/11/16 00:00 98.0 96 20 98/55 98 Room Air 08/10/16 20:00 98.2 97 22 109/74 98 Room Air 08/10/16 19:15 100 20 Room Air 08/10/16 19:15 98 Room Air 21 08/10/16 19:15 Room Air Intake and Output 08/10/16 08/11/16 19:00 07:00 Intake Total 1205 ml 850 ml Output Total 1300 ml 1900 ml Balance -95 ml -1050 ml Intake Oral 480 ml 240 ml IV Total 725 ml 610 ml Output Urine Total 1300 ml 1900 ml Laboratory Tests 08/11/16 05:40: White Blood Count 5.9, Red Blood Count 3.53L, Hemoglobin 10.9L, Hematocrit 32.2L , Mean Corpuscular Volume 91, Mean Corpuscular Hemoglobin 30.8, Mean Corpuscular Hemoglobin Concent 33.7, Red Cell Distribution Width 12.3, Platelet Count 229, Mean Platelet Volume 7.7, Neutrophils (%) (Auto) 37.4L, Lymphocytes ( %) (Auto) 50.9H, Monocytes (%) (Auto) 5.7, Eosinophils (%) (Auto) 5.6H, Basophils (%) (Auto) 0.3, Sodium Level 140, Potassium Level 4.3, Chloride Level 99, Carbon Dioxide Level 24, Anion Gap 17H, Blood Urea Nitrogen 9, Creatinine 0.5, Estimat Glomerular Filtration Rate > 60, Glucose Level 78, Calcium Level 9.5 Current Medications Medications (Trade) Dose Ordered Sig/Hedy Route PRN Reason Start Time Stop Time Status Last Admin Dose Admin Acetaminophen (Tylenol) 650 mg Q4H PRN ORAL FEVER 08/09/16 08:30 09/08/16 08:29 Albuterol/ Ipratropium (DuoNeb 0.5-3(2.5)mg/3ml) 3 ml Q4H PRN HHN Shortness of Breath 08/09/16 07:41 08/14/16 07:40 Azithromycin (Zithromax) 250 mg Q24HRS ORAL 08/11/16 13:00 08/18/16 12:59 08/11/16 13:29 Cefepime HCl/ Dextrose (Maxipime/D5W) 110 ml @ 220 mls/hr EVERY 12 HOURS IVPB 08/10/16 21:00 08/17/16 20:59 08/11/16 09:23 Dextrose (Dextrose 50%) STAT PRN IV Hypoglycemia 08/09/16 07:40 09/08/16 07:39 Docusate Sodium 100 mg 100 mg TID GT 08/10/16 18:00 09/08/16 17:59 08/11/16 13:29 Heparin Sodium (Porcine) (Heparin 5000 units/ml) 5,000 units EVERY 12 HOURS SUBQ 08/09/16 09:00 09/08/16 08:59 08/11/16 09:24 Lorazepam (Ativan 2mg/ml 1ml) 2 mg Q2H PRN IV For Anxiety 08/09/16 07:41 08/16/16 07:40 Morphine Sulfate (Morphine Sulfate) 4 mg Q4H PRN IVP Severe Pain (Pain Scale 7-10) 08/09/16 07:41 08/16/16 07:40 Ondansetron HCl (Zofran) 4 mg Q6H PRN IVP Nausea & Vomiting 08/09/16 07:41 09/08/16 07:40 Oxybutynin Chloride (Ditropan) 5 mg BID ORAL 08/09/16 18:00 09/08/16 17:59 08/11/16 09:22 Polyethylene Glycol (Miralax) 17 gm DAILYPRN PRN ORAL Constipation 08/09/16 07:41 09/08/16 07:40 Sodium Chloride (0.45% NS 1000ml) 1,000 ml @ 50 mls/hr Q20H IV 08/09/16 08:00 09/08/16 07:59 08/10/16 16:03 Vitamin B Complex (Vitamin B Complex) 1 ea DAILY GT 08/10/16 09:00 09/09/16 08:59 08/11/16 09:22 Vitamin D (Vitamin D) 400 intlu DAILY ORAL 08/10/16 09:00 09/09/16 08:59 08/11/16 09:22 Zinc Oxide (Zinc Oxide) 1 applic DAILY TOPIC 08/12/16 09:00 09/11/16 08:59 SHEYLA CAMPOS Aug 11, 2016 17:40
[2016-08-11 20:00] VITALS: BP 97/57
[2016-08-12] VITALS: BP 95/64
[2016-08-12 04:00] VITALS: BP 96/63
[2016-08-12 07:33] LABS: BASOPHILS % (AUTO) 1.1 % (0.0-2.0); EOSINOPHILS % (AUTO) 8.3 % (0.0-3.0); LYMPHOCYTES % (AUTO) 51.6 % (20.0-45.0); MEAN CORPUSCULAR HEMOGLOBIN 30.8 PG (27.0-31.0); MEAN CORPUSCULAR HGB CONC 33.8 G/DL (32.0-36.0); MEAN CORPUSCULAR VOLUME 91 FL (80-99); MEAN PLATELET VOLUME 7.3 FL (6.5-10.1); MONOCYTES % (AUTO) 5.9 % (1.0-10.0); NEUTROPHILS % (AUTO) 33.1 % (45.0-75.0); PLATELET COUNT 238 K/UL (150-450); RED BLOOD COUNT 3.47 M/UL (4.20-5.40); RED CELL DISTRIBUTION WIDTH 12.7 % (11.6-14.8); WHITE BLOOD COUNT 5.5 K/UL (4.8-10.8)
[2016-08-12 08:00] VITALS: BP 96/54
[2016-08-12 08:00] LABS: ANION GAP 14 (5-15); CALCIUM 9.3 mg/dL (8.6-10.2); CARBON DIOXIDE 24 mEQ/L (20-30); CHLORIDE 100 mEQ/L (98-107); CREATININE 0.4 mg/dL (0.5-0.9); GLOMERULAR FILTRATION RATE > 60 mL/min (>60); HEMOLYSIS 2; POTASSIUM 4.3 mEQ/L (3.4-4.9); SODIUM 138 mEQ/L (135-145)
[2016-08-12] MEDS: Docusate 100mg tablet GT SCH ×3 (08:22→18:07)
[2016-08-12] MEDS: Vitamin D 400 INTLU TAB ORAL SCH (08:22)
[2016-08-12] MEDS: Oxybutynin 5mg tab ORAL SCH ×2 (08:22→18:06)
[2016-08-12] MEDS: Heparin 5000 units/ml inj SUBQ SCH (08:23)
[2016-08-12] MEDS ORDERED: Zinc Oxide Oint 2oz TOPIC SCH (09:00)
[2016-08-12] MEDS: Cefepime HCl 2 GM in D5W 110 ML IVPB SCH (09:03)
--- NOTE | 2016-08-12 09:12 | Infectious Diseases Prog Note ---
Assessment/Plan Assessment/Plan ASSESSMENT: 26y/o female with: // HCAP vs CAP - SCx PSA - CXR 08/07: Mild left basilar atelectasis. Otherwise no acute cardiopulmonary disease. // Recurrent complicated UTI - UCx K.pneumoniae - Hx of hemorrhagic cystitis, Kleb , Pseudomonas - neurogenic bladder, chronic indwelling sterling // Stage IV sacral decubitus, not grossly infected, healing - h/o ESBL(+) E.coli, sensitive K.pneumoniae, MSSA - MRI(-) osteomyelitis 11/2014 // Negative influenza // Fever SP // BCx :CoNS ( contaminant ) // Sinus tachycardia // Chronic respiratory failure s/p trach, PEG // Spina bifida / paraplegia // Dysphagia SP PEG // MDRO colonized ( VRE, ESBL ) // Multiple ABX allergies - bactrim, vancomycin, meropenem. Tolerates cephalosporins // Full Code PLAN: - continue Cefepime d# 3 / 14 ( pt tolerated Ceftaz ) ok to DC w cont of AB Rx at home ( 08/12 SP Zithro d# 5 / 5 ) ( 08/11 SP Zyvox d# 4 ) ( 08/10 SP Ceftaz d# 3 ) - monitor CBC, temperatures - monitor Cultures ( Bl ) - wound care Subjective Constitutional: Denies: anorexia, chills, drenching sweats, fatigue, fever, no symptoms, other Allergies: Coded Allergies: LATEX (Verified Allergy, Mild, 08/31/13) MEROPENEM (Unverified Allergy, Mild, Rash, 11/27/14) SULFAMETHOXAZOLE (Unverified Allergy, Unknown, 07/24/15) TRIMETHOPRIM (Unverified Allergy, Unknown, 07/24/15) VANCOMYCIN (Verified Adverse Reaction, Intermediate, Hives/Red man syndrome, 08/08/16) Red man syndrome Objective Vital Signs Last 24 Hour Vital Signs Date Time Temp Pulse Resp B/P Pulse Ox O2 Delivery O2 Flow Rate FiO2 08/12/16 08:00 97.7 96 18 96/54 99 Room Air 08/12/16 04:00 97.5 91 18 96/63 99 Room Air 08/12/16 01:09 Room Air 08/12/16 01:09 99 Room Air 08/12/16 00:00 97.2 91 18 95/64 99 Room Air 08/11/16 20:01 Room Air 08/11/16 20:01 99 Room Air 08/11/16 20:01 101 18 Room Air 08/11/16 20:00 97.9 107 22 97/57 Room Air 08/11/16 16:00 98.1 104 22 107/64 98 Room Air 08/11/16 12:59 Room Air 08/11/16 12:59 99 Room Air 21 08/11/16 12:00 97.9 96 19 96/64 96 Trach Collar Height (Feet): 4 Height (Inches): 11.00 Weight (Pounds): 120 HEENT: anicteric Respiratory/Chest: normal breath sounds Cardiovascular: regular rhythm Abdomen: non distended Laboratory Tests Test 08/12/16 06:00 White Blood Count 5.5 K/UL (4.8-10.8) Red Blood Count 3.47 M/UL (4.20-5.40) L Hemoglobin 10.7 G/DL (12.0-16.0) L Hematocrit 31.6 % (37.0-47.0) L Mean Corpuscular Volume 91 FL (80-99) Mean Corpuscular Hemoglobin 30.8 PG (27.0-31.0) Mean Corpuscular Hemoglobin Concent 33.8 G/DL (32.0-36.0) Red Cell Distribution Width 12.7 % (11.6-14.8) Platelet Count 238 K/UL (150-450) Mean Platelet Volume 7.3 FL (6.5-10.1) Neutrophils (%) (Auto) 33.1 % (45.0-75.0) L Lymphocytes (%) (Auto) 51.6 % (20.0-45.0) H Monocytes (%) (Auto) 5.9 % (1.0-10.0) Eosinophils (%) (Auto) 8.3 % (0.0-3.0) H Basophils (%) (Auto) 1.1 % (0.0-2.0) Sodium Level 138 mEQ/L (135-145) Potassium Level 4.3 mEQ/L (3.4-4.9) Chloride Level 100 mEQ/L (98-107) Carbon Dioxide Level 24 mEQ/L (20-30) Anion Gap 14 (5-15) Blood Urea Nitrogen 7 mg/dL (7-23) Creatinine 0.4 mg/dL (0.5-0.9) L Estimat Glomerular Filtration Rate > 60 mL/min (>60) Glucose Level 78 mg/dL (74-106) Calcium Level 9.3 mg/dL (8.6-10.2) Current Medications Medications (Trade) Dose Ordered Sig/Hedy Route PRN Reason Start Time Stop Time Status Last Admin Dose Admin Acetaminophen (Tylenol) 650 mg Q4H PRN ORAL FEVER 08/09/16 08:30 09/08/16 08:29 Albuterol/ Ipratropium (DuoNeb 0.5-3(2.5)mg/3ml) 3 ml Q4H PRN HHN Shortness of Breath 08/09/16 07:41 08/14/16 07:40 Azithromycin (Zithromax) 250 mg Q24HRS ORAL 08/11/16 13:00 08/18/16 12:59 08/11/16 13:29 Cefepime HCl/ Dextrose (Maxipime/D5W) 110 ml @ 220 mls/hr EVERY 12 HOURS IVPB 08/10/16 21:00 08/17/16 20:59 08/12/16 09:03 Dextrose (Dextrose 50%) STAT PRN IV Hypoglycemia 08/09/16 07:40 09/08/16 07:39 Docusate Sodium 100 mg 100 mg TID GT 08/10/16 18:00 09/08/16 17:59 08/12/16 08:22 Heparin Sodium (Porcine) (Heparin 5000 units/ml) 5,000 units EVERY 12 HOURS SUBQ 08/09/16 09:00 09/08/16 08:59 08/12/16 08:23 Lorazepam (Ativan 2mg/ml 1ml) 2 mg Q2H PRN IV For Anxiety 08/09/16 07:41 08/16/16 07:40 Morphine Sulfate (Morphine Sulfate) 4 mg Q4H PRN IVP Severe Pain (Pain Scale 7-10) 08/09/16 07:41 08/16/16 07:40 Ondansetron HCl (Zofran) 4 mg Q6H PRN IVP Nausea & Vomiting 08/09/16 07:41 09/08/16 07:40 Oxybutynin Chloride (Ditropan) 5 mg BID ORAL 08/09/16 18:00 09/08/16 17:59 08/12/16 08:22 Polyethylene Glycol (Miralax) 17 gm DAILYPRN PRN ORAL Constipation 08/09/16 07:41 09/08/16 07:40 Sodium Chloride (0.45% NS 1000ml) 1,000 ml @ 50 mls/hr Q20H IV 08/09/16 08:00 09/08/16 07:59 08/12/16 05:01 Vitamin B Complex (Vitamin B Complex) 1 ea DAILY GT 08/10/16 09:00 09/09/16 08:59 08/12/16 08:22 Vitamin D (Vitamin D) 400 intlu DAILY ORAL 08/10/16 09:00 09/09/16 08:59 08/12/16 08:22 Zinc Oxide (Zinc Oxide) 1 applic DAILY TOPIC 08/12/16 09:00 09/11/16 08:59 08/12/16 08:26 ANDRES NUNEZ M.D. Aug 12, 2016 09:12
--- NOTE | 2016-08-12 10:29 | GI Progress Note ---
Assessment/Plan Problems: (1) Anemia ICD Codes: D64.9 - Anemia, unspecified SNOMED: 593948767 (2) G-tube site cellulitis ICD Codes: K94.22 - Gastrostomy infection; L03.319 - Cellulitis of trunk, unspecified SNOMED: 801432413, 879549748 (3) Sepsis ICD Codes: A41.9 - Sepsis SNOMED: [id number] Status: stable Status Narrative Discussed with Dr. Fernandez. Assessment/Plan GT site appears normal with no active s/sx of infection AP CT noted >> no mechanical obstruction Swallow video >> SOFT, EASY CHEW WITH THIN LIQUID DIET ok for DC per GI standpoint zinc oxide daily/prn iron panel unremarkable dietary consult for bolus TFs colace abx fu labs Subjective Subjective limited Objective Last 24 Hour Vital Signs Date Time Temp Pulse Resp B/P Pulse Ox O2 Delivery O2 Flow Rate FiO2 08/12/16 08:00 97.7 96 18 96/54 99 Room Air 08/12/16 04:00 97.5 91 18 96/63 99 Room Air 08/12/16 01:09 Room Air 08/12/16 01:09 99 Room Air 08/12/16 00:00 97.2 91 18 95/64 99 Room Air 08/11/16 20:01 Room Air 08/11/16 20:01 99 Room Air 08/11/16 20:01 101 18 Room Air 08/11/16 20:00 97.9 107 22 97/57 Room Air 08/11/16 16:00 98.1 104 22 107/64 98 Room Air 08/11/16 12:59 Room Air 08/11/16 12:59 99 Room Air 21 08/11/16 12:00 97.9 96 19 96/64 96 Trach Collar Intake and Output 08/11/16 08/12/16 19:00 07:00 Intake Total 600 ml 910 ml Output Total 1200 ml 1100 ml Balance -600 ml -190 ml Intake Oral 500 ml 400 ml Free Water 100 ml IV Total 510 ml Output Urine Total 1200 ml 1100 ml Laboratory Tests Test 08/12/16 06:00 White Blood Count 5.5 K/UL (4.8-10.8) Red Blood Count 3.47 M/UL (4.20-5.40) L Hemoglobin 10.7 G/DL (12.0-16.0) L Hematocrit 31.6 % (37.0-47.0) L Mean Corpuscular Volume 91 FL (80-99) Mean Corpuscular Hemoglobin 30.8 PG (27.0-31.0) Mean Corpuscular Hemoglobin Concent 33.8 G/DL (32.0-36.0) Red Cell Distribution Width 12.7 % (11.6-14.8) Platelet Count 238 K/UL (150-450) Mean Platelet Volume 7.3 FL (6.5-10.1) Neutrophils (%) (Auto) 33.1 % (45.0-75.0) L Lymphocytes (%) (Auto) 51.6 % (20.0-45.0) H Monocytes (%) (Auto) 5.9 % (1.0-10.0) Eosinophils (%) (Auto) 8.3 % (0.0-3.0) H Basophils (%) (Auto) 1.1 % (0.0-2.0) Sodium Level 138 mEQ/L (135-145) Potassium Level 4.3 mEQ/L (3.4-4.9) Chloride Level 100 mEQ/L (98-107) Carbon Dioxide Level 24 mEQ/L (20-30) Anion Gap 14 (5-15) Blood Urea Nitrogen 7 mg/dL (7-23) Creatinine 0.4 mg/dL (0.5-0.9) L Estimat Glomerular Filtration Rate > 60 mL/min (>60) Glucose Level 78 mg/dL (74-106) Calcium Level 9.3 mg/dL (8.6-10.2) Height (Feet): 4 Height (Inches): 11.00 Weight (Pounds): 120 General Appearance: no apparent distress, alert Cardiovascular: normal rate Respiratory/Chest: normal breath sounds, no respiratory distress Abdominal Exam: site - c/d/i Emily Osorio N.P. Aug 12, 2016 10:29
[2016-08-12 12:00] VITALS: BP 95/58
[2016-08-12] MEDS: Azithromycin 250mg tab ORAL SCH (13:32)
[2016-08-12 16:00] VITALS: BP 95/58
[2016-08-12] MEDS ORDERED: CEFEPIME-D1 GM/50 ML IVPB (16:00)
--- NOTE | 2016-08-12 16:01 | Pulmonology Progress Note ---
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 (5) G-tube site cellulitis Assessment/Plan improvong afebrile tolerating feeing may go home with iv antibiotics awaiting arrangement of home health for IV antibiotics Subjective ROS Limited/Unobtainable: No Constitutional: Reports: no symptoms HEENT: Repors: no symptoms Respiratory: Reports: no symptoms Allergies: Coded Allergies: LATEX (Verified Allergy, Mild, 08/31/13) MEROPENEM (Unverified Allergy, Mild, Rash, 11/27/14) SULFAMETHOXAZOLE (Unverified Allergy, Unknown, 07/24/15) TRIMETHOPRIM (Unverified Allergy, Unknown, 07/24/15) VANCOMYCIN (Verified Adverse Reaction, Intermediate, Hives/Red man syndrome, 08/08/16) Red man syndrome Objective Last 24 Hour Vital Signs Date Time Temp Pulse Resp B/P Pulse Ox O2 Delivery O2 Flow Rate FiO2 08/12/16 12:50 98 Room Air 21 08/12/16 12:50 Room Air 21 08/12/16 12:00 97.7 98 20 95/58 100 Room Air 08/12/16 08:50 108 20 Room Air 08/12/16 08:50 Room Air 21 08/12/16 08:50 99 Room Air 21 08/12/16 08:00 97.7 96 18 96/54 99 Room Air 08/12/16 04:00 97.5 91 18 96/63 99 Room Air 08/12/16 01:09 Room Air 08/12/16 01:09 99 Room Air 08/12/16 00:00 97.2 91 18 95/64 99 Room Air 08/11/16 20:01 Room Air 08/11/16 20:01 99 Room Air 08/11/16 20:01 101 18 Room Air 08/11/16 20:00 97.9 107 22 97/57 Room Air Intake and Output 08/11/16 08/12/16 19:00 07:00 Intake Total 600 ml 910 ml Output Total 1200 ml 1100 ml Balance -600 ml -190 ml Intake Oral 500 ml 400 ml Free Water 100 ml IV Total 510 ml Output Urine Total 1200 ml 1100 ml General Appearance: WD/WN HEENT: normocephalic Respiratory/Chest: chest wall non-tender, normal breath sounds Breasts: no masses Cardiovascular: normal peripheral pulses Abdomen: normal bowel sounds, soft, non tender Genitourinary: normal external genitalia Neurologic/Psychiatric: dental manager II-XII grossly normal Laboratory Tests 08/12/16 06:00: White Blood Count 5.5, Red Blood Count 3.47L, Hemoglobin 10.7L, Hematocrit 31.6L , Mean Corpuscular Volume 91, Mean Corpuscular Hemoglobin 30.8, Mean Corpuscular Hemoglobin Concent 33.8, Red Cell Distribution Width 12.7, Platelet Count 238, Mean Platelet Volume 7.3, Neutrophils (%) (Auto) 33.1L, Lymphocytes ( %) (Auto) 51.6H, Monocytes (%) (Auto) 5.9, Eosinophils (%) (Auto) 8.3H, Basophils (%) (Auto) 1.1, Sodium Level 138, Potassium Level 4.3, Chloride Level 100, Carbon Dioxide Level 24, Anion Gap 14, Blood Urea Nitrogen 7, Creatinine 0.4L, Estimat Glomerular Filtration Rate > 60, Glucose Level 78, Calcium Level 9.3 Current Medications Medications (Trade) Dose Ordered Sig/Hedy Route PRN Reason Start Time Stop Time Status Last Admin Dose Admin Acetaminophen (Tylenol) 650 mg Q4H PRN ORAL FEVER 08/09/16 08:30 09/08/16 08:29 Albuterol/ Ipratropium (DuoNeb 0.5-3(2.5)mg/3ml) 3 ml Q4H PRN HHN Shortness of Breath 08/09/16 07:41 08/14/16 07:40 Azithromycin (Zithromax) 250 mg Q24HRS ORAL 08/11/16 13:00 08/18/16 12:59 08/12/16 13:32 Cefepime HCl/ Dextrose (Maxipime/D5W) 110 ml @ 220 mls/hr EVERY 12 HOURS IVPB 08/10/16 21:00 08/17/16 20:59 08/12/16 09:03 Dextrose (Dextrose 50%) STAT PRN IV Hypoglycemia 08/09/16 07:40 09/08/16 07:39 Docusate Sodium 100 mg 100 mg TID GT 08/10/16 18:00 09/08/16 17:59 08/12/16 08:22 Heparin Sodium (Porcine) (Heparin 5000 units/ml) 5,000 units EVERY 12 HOURS SUBQ 08/09/16 09:00 09/08/16 08:59 08/12/16 08:23 Lorazepam (Ativan 2mg/ml 1ml) 2 mg Q2H PRN IV For Anxiety 08/09/16 07:41 08/16/16 07:40 Morphine Sulfate (Morphine Sulfate) 4 mg Q4H PRN IVP Severe Pain (Pain Scale 7-10) 08/09/16 07:41 08/16/16 07:40 Ondansetron HCl (Zofran) 4 mg Q6H PRN IVP Nausea & Vomiting 08/09/16 07:41 09/08/16 07:40 Oxybutynin Chloride (Ditropan) 5 mg BID ORAL 08/09/16 18:00 09/08/16 17:59 08/12/16 08:22 Polyethylene Glycol (Miralax) 17 gm DAILYPRN PRN ORAL Constipation 08/09/16 07:41 09/08/16 07:40 Sodium Chloride (0.45% NS 1000ml) 1,000 ml @ 50 mls/hr Q20H IV 08/09/16 08:00 09/08/16 07:59 08/12/16 05:01 Vitamin B Complex (Vitamin B Complex) 1 ea DAILY GT 08/10/16 09:00 09/09/16 08:59 08/12/16 08:22 Vitamin D (Vitamin D) 400 intlu DAILY ORAL 08/10/16 09:00 09/09/16 08:59 08/12/16 08:22 Zinc Oxide (Zinc Oxide) 1 applic DAILY TOPIC 08/12/16 09:00 09/11/16 08:59 08/12/16 08:26 SHEYLA CAMPOS Aug 12, 2016 16:01
[2016-08-12 20:00] VITALS: BP 99/59
[2016-08-12] MEDS ORDERED: D5NS 1000ml IV ONE (21:39)
[2016-08-12] MEDS ORDERED: NS 275ml ONE (21:39)
[2016-08-12] MEDS ORDERED: Sterile Water Irrig 1000ml IRRIG ONE (21:39)
[2016-08-12] MEDS ORDERED: 1/2 NS 1000ml IV ONE (21:39)
[2016-08-12] MEDS ORDERED: Tubing IV Secondary IV ONE (21:39)
--- NOTE | 2016-08-16 07:16 | Discharge Summary ---
Discharge Summary Hospital Course Date of Admission Aug 07, 2016 at 10:10 Date of Discharge Aug 12, 2016 at 21:40 Admitting Diagnosis Sepsis HPI Chris Eckert is a 26 year old female who was admitted on Aug 07, 2016 at 10: 10 for Sepsis Hospital Course dc summary dictated # [id number] Discharge Medications New Medications: Cefepime Hcl/D5w (Cefepime-Dextrose 1 Gm/50 Ml) 1 Gm/50 Ml Piggyback 1 GM IVPB EVERY 12 HOURS for 10 Days, BAG Continued Medications: Acetaminophen (Acetaminophen 8 Hour) 650 Mg Tablet.er 650 MG GT Q8H, TAB Albuterol Sulfate* (Albuterol Sulfate Hhn*) 2.5 Mg/3 Ml Vial.neb 3 ML INH Q4H PRN for Shortness of Breath, EA Fluticasone Propionate (Fluticasone Propionate) 16 Gm Nice.susp #16 Discharge Condition Upon Discharge: improving, stable Discharge Disposition Patient was discharged to Home with Home Health(06) Discharge Diagnoses: Discharge Instructions Discharge Instructions Special Instructions I have been assigned to complete a D/C Summary on this account. I was not involved in the patient management Porsche Wells NP (Vanchtein) Aug 16, 2016 07:15
--- NOTE | 2016-08-16 09:18 | Discharge Summary 2 SIG ---
DATE OF ADMISSION: 08/07/2016 DATE OF DISCHARGE: 08/12/2016 REASON FOR ADMISSION: 26 years old female with the spina bifida, chronic respiratory failure with tracheostomy, paraplegic, dysphagia, G-tube, sacral decubitus, history of recurrent urinary tract infection and sepsis in the past presented with fever, chills, and recently diagnosed with cellulitis and G tube site. She received a PICC line at [facility] on 07/28/2016 and discharged from the hospital on 08/04/2016, sent home with home health, but no antibiotics were given for the last three days. The patient presented with the fever of 102.4, tachycardic 139. No leukocytosis. Lactic acid normal. The patient initial chest x-ray revealed no acute cardiopulmonary pathology. EKG revealed sinus tachycardia. CT of the abdomen and pelvis was done and there was essentially no acute abnormal abdominal pelvic pathology. The patient pancultured and resuscitated with IV fluids, started on empiric antibiotics and transferred to the floor for further management. ADMITTING DIAGNOSES: 1. Fever and chills. 2. Possible sepsis. 3. G-tube site cellulitis. 4. Healthcare-associated pneumonia versus community-acquired pneumonia. 5. SAWMILL MANAGER shunt/hydrocele. 6. Chronic respiratory failure with tracheostomy. 7. History of recurrent urinary tract infection with hemorrhagic cystitis. HOSPITAL COURSE: The patient admitted on the floor. ID consult and GI consult were requested. Influenza screen was negative. Sputum culture was positive for Pseudomonas. Urine culture was positive for Klebsiella. Blood culture one out of the four was positive for Staph coag-negative, likely contaminant as per ID. The patient was on antibiotic regimen, which was optimized as per Infectious Disease recommendation. She needs to continue at home cefepime intravenously for 10 more days. GI consult was requested as well. G-tube site looked clean. Continue G-tube site care as recommended by animator. The patient with a sacral decubitus stage IV, present on admission, not grossly infected as per ID. Wound care provided as per protocol. Dietary evaluation was requested for recommendations for the tube feeding, receiving boluses at home. Continue at home with dietary recommendations regarding tube feeding. Cardiopulmonary status was closely monitored. Tachycardia resolved. The patient oxygenation was stable on the room air. Tracheostomy remained capped. Pulmonary toilet provided as needed. Trach care provided. Bowel regimen instituted. The patient noted to be a with mild anemia. Anemia workup revealed stable iron panel. No trend down. Needs close monitoring. All consultants cleared for discharge. FINAL DIAGNOSES: 1. Sepsis. 2. Healthcare-associated pneumonia versus community-acquired pneumonia. 3. Urinary tract infection with history of recurrent urinary tract infection and hemorrhagic cystitis. 4. G-tube site cellulitis. 5. Dysphagia. 6. Gastrotomy tube. 7. Chronic respiratory failure. 8. Tracheostomy status. 9. Dysphagia, gastrostomy tube. 10. Paraplegia. 11. Stage IV sacral decubitus, present on admission. 12. Anemia. DISCHARGE MEDICATIONS: See medication reconciliation list. The patient needs to continue on intravenous cefepime for additional 10 days as per ID recommendation. DISCHARGE INSTRUCTIONS: The patient discharged home with the home health for IV antibiotic. Follow up with the primary care provider. Emily Mayen M.D. I have been assigned to dictate discharge summary on this account and I was not involved in the patient's management. Porsche Floriangulshan N.PCarlos UGARTE: KEYSHA JOB#: [id number] CC: [email or web address]
--- NOTE | 2016-08-19 12:53 | Diagnostic Imaging Report ---
Indications: Dysphagia Technique: Multiphasic barium dysphagia study was performed under fluoroscopic control with Yarelis Esquivel speech pathologist. Cinegraphic images were obtained. Total fluoroscopy time: 171.8 sec Dose-area product: 0.22 mGy-m2 Findings: Comparison: None Oral and pharyngeal phases of swallowing demonstrate multiple mechanical abnormalities, as enumerated on speech pathology evaluation form. The patient demonstrates superficial laryngeal penetration of thin and nectar thickness barium without aspiration injected, no penetration or aspiration of any thicker consistency of barium employed. There is mild barium coating of pharyngeal structures post swallow. Esophageal phase of swallowing demonstrates no obvious barium pooling. IMPRESSION: Abnormal oropharyngeal mechanics with superficial laryngeal penetration of thinner consistencies of barium without aspiration. Mild post swallow pharyngeal residue No obvious esophageal dysmotility. Recommendation per speech pathology evaluation form.
== END 2016-08-12 21:40 | disposition home health service (06) | DRG 720 ==
LOC: EMR 07:30 → EDBEDREQ 09:22 → 2E 10:10 → EDBEDREQSVC 12:56 → EDBEDREQ 13:52 → 4W 08-09 07:18
DX: A41.9 Sepsis, unspecified organism (principal); L89.154 Pressure ulcer of sacral region, stage 4; J96.10 Chronic respiratory failure, unspecified whether with hypoxia or hypercapnia; Z43.0 Encounter for attention to tracheostomy; K94.22 Gastrostomy infection; J18.9 Pneumonia, unspecified organism; G82.20 Paraplegia, unspecified; Z43.1 Encounter for attention to gastrostomy; L03.311 Cellulitis of abdominal wall; Y83.8 Other surgical procedures as the cause of abnormal reaction of the patient, or of later complication, without mention of misadventure at the time of the procedure; D64.9 Anemia, unspecified; R13.10 Dysphagia, unspecified; N39.0 Urinary tract infection, site not specified; B96.1 Klebsiella pneumoniae [K. pneumoniae] as the cause of diseases classified elsewhere; Z88.1 Allergy status to other antibiotic agents; Z88.2 Allergy status to sulfonamides; Z88.8 Allergy status to other drugs, medicaments and biological substances; N31.9 Neuromuscular dysfunction of bladder, unspecified; Q05.2 Lumbar spina bifida with hydrocephalus
CPT/HCPCS: 36415; 71010; 74177; 74230; 80048; 80053; 80069; 81003; 82550; 82553; 83540; 83550; 83605; 83690; 83735; 84100; 84484; 85007; 85025; 85610; 85730; 86710; 87040; 87070; 87081; 87086; 87181; 87205; 93005; 93970; 94664; 94760; J7620

== ENCOUNTER 2017-07-27 08:01 | Emergency (ER) | payer MEDICAID ==
[~2017-07-27] VITALS: Ht 149.9 cm; Wt 49.4 kg
[~2017-07-27 08:01] MED LIST changes: +ANTIBIOTIC; +CEFEPIME-D1 GM/50 ML IVPB; +DOCU LIQUI50 MG/5 M1; +FERROUS SU220 MG/53; +FLONASE1 SPRAYS; +OXYBUTYNIN5 MG/5 M1
[2017-07-27 08:30] VITALS: BP 104/77
[2017-07-27 09:35] LABS: APPEARANCE,URINE CLOUDY; BILIRUBIN, URINE NEGATIVE (NEGATIVE); GLUCOSE, URINE (UA) NEGATIVE (NEGATIVE); KETONES,URINE 1+ (NEGATIVE); LEUKOCYTE ESTERASE ,URINE 3+ (NEGATIVE); NITRITE,URINE POSITIVE (NEGATIVE); PH,URINE 6 (4.5-8.0); PROTEIN,URINE 2+ (NEGATIVE); UROBILINOGEN,URINE NORMAL MG/DL (0.0-1.0)
[2017-07-27 09:37] LABS: COLOR,URINE YELLOW
[2017-07-27 10:25] LABS: BASOPHILS % (AUTO) 0.6 % (0.0-2.0); HEMATOCRIT 37.4 % (37.0-47.0); HEMOGLOBIN 12.4 G/DL (12.0-16.0); LYMPHOCYTES % (AUTO) 15.9 % (20.0-45.0); MEAN CORPUSCULAR VOLUME 95 FL (80-99); MONOCYTES % (AUTO) 7.7 % (1.0-10.0); NEUTROPHILS % (AUTO) 74.9 % (45.0-75.0); PLATELET COUNT 245 K/UL (150-450); RED BLOOD COUNT 3.94 M/UL (4.20-5.40); RED CELL DISTRIBUTION WIDTH 12.3 % (11.6-14.8)
--- NOTE | 2017-07-27 10:28 | Diagnostic Imaging Report ---
Indication: Dyspnea Comparison: 08/07/2006 A single view chest radiograph was obtained. Findings: Cardiomediastinal appearance is within normal limits for age. Right-sided SPACE SCIENCES DIRECTOR shunt again noted. Pulmonary vascularity is appropriate. The diaphragmatic contour is smooth and costophrenic angles are sharp. No pleural effusions are identified. The bones are unremarkable. Impression: No acute findings
[2017-07-27 10:30] VITALS: BP 109/67
[2017-07-27 10:41] LABS: ANION GAP 10 mmol/L (5-15); BLOOD UREA NITROGEN 10 mg/dL (7-18); CALCIUM 9.1 MG/DL (8.5-10.1); CARBON DIOXIDE 24 MMOL/L (21-32); CHLORIDE 103 MMOL/L (98-107); CREATININE 0.6 MG/DL (0.55-1.30); POTASSIUM 3.5 MMOL/L (3.5-5.1); SODIUM 137 MMOL/L (136-145)
[2017-07-27 11:00] LABS: ALANINE AMINOTRANSFERASE 15 U/L (12-78); ALBUMIN 3.9 G/DL (3.4-5.0); ALKALINE PHOSPHATASE 71 U/L (46-116); ASPARTATE AMINO TRANSFERASE 12 U/L (15-37); BILIRUBIN,TOTAL 0.6 MG/DL (0.2-1.0)
--- NOTE | 2017-07-27 12:08 | Diagnostic Imaging Report ---
Indication: Neck pain. Technique: Continuous helical imaging of the neck was obtained transaxially from the skull base to the upper thoracic spine during intravenous administration of nonionic contrast. 2-D coronal and sagittal reformatted images were obtained. Total Dose length Product (DLP): 595.[address] Dose Index Volume (CTDIvol): 19.81 mGy Comparison: None Findings: Suboccipital craniectomy has been performed. Cerebellar tonsils appear low. There is no mass within the neck or adenopathy identified. The major vessels including the jugular veins and carotid arteries appear normal. The glands are unremarkable. Cervical spine is unremarkable. Epiglottis and aryepiglottic folds are normal. There is no subglottic edema. Parapharyngeal fat is symmetric. IMPRESSION: Suboccipital craniectomy noted. Chiari malformation noted. Negative examination otherwise The CT scanner at [facility] is accredited by the [employer] and the scans are performed using dose optimization techniques as appropriate to a performed exam including Automatic Exposure control.
[2017-07-27 13:00] VITALS: BP 118/79
--- NOTE | 2017-07-27 15:33 | Emergency Room Report ---
History of Present Illness General Chief Complaint: General Complaint Source: Patient, Family Member, Medical Record Present Illness HPI Patient has a history of spina bifida and hydrocephalus. She presents status post one week after having her tracheostomy removed. She states that she has had an intermittent cough. She states that when she coughs she has noticed some streaky blood in her sputum. She states that it also hurts at her trach site when she coughs. She denies fever or chills. She denies nausea or vomiting. She denies chest pain or shortness of breath. She denies abdominal pain. She denies headache. She denies back pain. She has no other complaints. Allergies: Coded Allergies: LATEX (Verified Allergy, Mild, 08/31/13) MEROPENEM (Unverified Allergy, Mild, Rash, 11/27/14) CLINDAMYCIN (Verified Allergy, Unknown, 07/27/17) SULFAMETHOXAZOLE (Unverified Allergy, Unknown, 07/24/15) TRIMETHOPRIM (Unverified Allergy, Unknown, 07/24/15) VANCOMYCIN (Verified Adverse Reaction, Intermediate, Hives/Red man syndrome, 08/08/16) Red man syndrome Patient History Past Medical History: see triage record Past Surgical History: other - CASE P[employer] shunt, G-tube Social History: Denies: smoking, alcohol use, drug use Last Menstrual Period: 06/30/2017 Reviewed Nursing Documentation: PMH: Agreed, PSxH: Agreed Nursing Documentation-PMH Past Medical History: No History, Except For Hx Cardiac Problems: Yes - spina bifida Hx Cancer: No Hx Gastrointestinal Problems: Yes - GT PLACEMENT Hx Neurological Problems: Yes - hydrocephalus Hx Brain Shunt: Yes - Ventriculoperitoneal Shunt Review of Systems All Other Systems: negative except mentioned in HPI Physical Exam Vital Signs Date Time Temp Pulse Resp B/P (MAP) Pulse Ox O2 Delivery O2 Flow Rate FiO2 07/27/17 08:20 98.2 110 16 114/72 98 Room Air Sp02 EP Interpretation: reviewed, normal General Appearance: no apparent distress, alert, GCS 15, non-toxic Head: normocephalic, atraumatic Eyes: bilateral eye normal inspection, bilateral eye PERRL ENT: hearing grossly normal, normal pharynx, no angioedema, normal voice Neck: full range of motion, supple/symm/no masses Respiratory: chest non-tender, lungs clear, normal breath sounds, no respiratory distress, no retraction, no accessory muscle use, speaking full sentences Cardiovascular #1: no edema, tachycardia Gastrointestinal: normal bowel sounds, non tender, soft, non-distended, no guarding, no rebound Rectal: deferred Musculoskeletal: other - contractures Neurologic: alert, oriented x3, responsive, motor strength/tone normal, sensory intact, speech normal Psychiatric: judgement/insight normal, memory normal, mood/affect normal, no suicidal/homicidal ideation Skin: normal color, no rash, warm/dry, well hydrated Medical Decision Making Diagnostic Impression: Primary Impression: UTI (urinary tract infection) Additional Impression: Upper respiratory infection ER Course This patient presents with with pain at the tracheostomy site. I did do a CT of the neck which shows no acute findings. There is no evidence of abscess or infection. No swelling. Chest x-ray is unremarkable. Laboratory workup is benign other than she does have a urinary tract infection. She does self- catheterization. I reassured by this patient's workup. There is no evidence of pneumonia. Overall, the patient's evaluation is reassuring. The patient and the mother are given close return precautions and followup instructions. Laboratory Tests Test 07/27/17 09:00 07/27/17 10:15 Urine Color Yellow Urine Appearance Cloudy Urine pH 6 (4.5-8.0) Urine Specific [place] 1.020 (1.005-1.035) Urine Protein 2+ (NEGATIVE) H Urine Glucose (UA) Negative (NEGATIVE) Urine Ketones 1+ (NEGATIVE) H Urine Occult Blood 3+ (NEGATIVE) H Urine Nitrite Positive (NEGATIVE) H Urine Bilirubin Negative (NEGATIVE) Urine Urobilinogen Normal MG/DL (0.0-1.0) Urine Leukocyte Esterase 3+ (NEGATIVE) H Urine RBC 10-15 /HPF (0 - 2) H Urine WBC 15-20 /HPF (0 - 2) H Urine Squamous Epithelial Cells Few /LPF (NONE/OCC) Urine Bacteria Many /HPF (NONE) H Urine HCG, Qualitative Negative White Blood Count 10.0 K/UL (4.8-10.8) Red Blood Count 3.94 M/UL (4.20-5.40) L Hemoglobin 12.4 G/DL (12.0-16.0) Hematocrit 37.4 % (37.0-47.0) Mean Corpuscular Volume 95 FL (80-99) Mean Corpuscular Hemoglobin 31.4 PG (27.0-31.0) H Mean Corpuscular Hemoglobin Concent 33.0 G/DL (32.0-36.0) Red Cell Distribution Width 12.3 % (11.6-14.8) Platelet Count 245 K/UL (150-450) Mean Platelet Volume 8.1 FL (6.5-10.1) Neutrophils (%) (Auto) 74.9 % (45.0-75.0) Lymphocytes (%) (Auto) 15.9 % (20.0-45.0) L Monocytes (%) (Auto) 7.7 % (1.0-10.0) Eosinophils (%) (Auto) 1.0 % (0.0-3.0) Basophils (%) (Auto) 0.6 % (0.0-2.0) Sodium Level 137 MMOL/L (136-145) Potassium Level 3.5 MMOL/L (3.5-5.1) Chloride Level 103 MMOL/L (98-107) Carbon Dioxide Level 24 MMOL/L (21-32) Anion Gap 10 mmol/L (5-15) Blood Urea Nitrogen 10 mg/dL (7-18) Creatinine 0.6 MG/DL (0.55-1.30) Estimate Glomerular Filtration Rate > 60 mL/min (>60) Glucose Level 76 MG/DL (74-106) Calcium Level 9.1 MG/DL (8.5-10.1) Total Bilirubin 0.6 MG/DL (0.2-1.0) Aspartate Amino Transferase (AST) 12 U/L (15-37) L Alanine Aminotransferase (ALT) 15 U/L (12-78) Alkaline Phosphatase 71 U/L (46-116) Total Protein 7.8 G/DL (6.4-8.2) Albumin 3.9 G/DL (3.4-5.0) Globulin 3.9 g/dL Albumin/Globulin Ratio 1.0 (1.0-2.7) Microbiology Date/Time Source Procedure Growth Status 07/27/17 09:00 Nasal Nares Influenza Types A,B Antigen (TEX) - Final Complete Chest X-Ray Diagnostic Results Chest X-Ray Diagnostic Results : Chest X-Ray Ordered: Yes # of Views/Limited/Complete: 1 View Indication: Other EP Interpretation: Yes Interpretation: no consolidation, no effusion, no pneumothorax, no acute cardiopulmonary disease Impression: No acute disease CT/MRI/US Diagnostic Results CT/MRI/US Diagnostic Results : Imaging Test Ordered: CT neck Impression Suboccipital craniectomy noted. Chiari malformation noted. Negative examination otherwise Last Vital Signs Date Time Temp Pulse Resp B/P (MAP) Pulse Ox O2 Delivery O2 Flow Rate FiO2 07/27/17 13:00 105 18 118/79 100 Room Air 07/27/17 08:30 98.7 Status: improved Disposition: HOME, SELF-CARE Condition: Improved Referrals: [facility]ERR[facility] (PCP) BERNIE FELDMAN D.O. Jul 27, 2017 15:33
[2017-07-27 15:35] VITALS: BP 109/79
[2017-07-27] MEDS ORDERED: KEFLEX500 MG ORAL (15:37)
[2017-07-27 15:53] VITALS: BP 109/79
[2017-07-27] MEDS ORDERED: LEVAQUIN750 MG ORAL (16:02)
== END 2017-07-27 15:53 | disposition home or self-care (01) ==
LOC: EMR 09:22
DX: J06.9 Acute upper respiratory infection, unspecified (principal); N39.0 Urinary tract infection, site not specified; G91.9 Hydrocephalus, unspecified; Z98.2 Presence of cerebrospinal fluid drainage device; Q05.9 Spina bifida, unspecified; Z88.2 Allergy status to sulfonamides; Z88.1 Allergy status to other antibiotic agents; Z91.040 Latex allergy status
CPT/HCPCS: 36415; 70491; 71045; 80053; 81003; 81025; 85025; 86710; 87086; 87181; 99284; Q9967

== ENCOUNTER 2019-02-27 19:24 | Emergency (ER) | payer MEDICAID ==
[~2019-02-27] VITALS: Ht 180.3 cm; Wt 49.9 kg
[~2019-02-27 19:24] MED LIST changes: +KEFLEX500 MG ORAL; +LEVAQUIN750 MG ORAL
[2019-02-27 19:31] VITALS: BP 120/81
--- NOTE | 2019-02-27 19:31 | NUR ---
ED Nurse Note: Patient wheeled into ED accompanied by caregiver c/o hematuiria, patient is unable to void due to her condition and has someone catherize her to produce urine, while catheterizing patient, caregiver noticed bright red blood inside the bag, states that she catherized her a 2nd time and noticed blood as well. at time of arrival, straight cath was inserted to which produced reddened urine, not bright red, about 200mL came out. patient presents with a pressure ulcer on the lower coccyx area, patient is alert and oriented x4
[2019-02-27 20:20] LABS: BILIRUBIN, URINE NEGATIVE (NEGATIVE); GLUCOSE, URINE (UA) NEGATIVE (NEGATIVE); KETONES,URINE NEGATIVE (NEGATIVE); LEUKOCYTE ESTERASE ,URINE 3+ (NEGATIVE); NITRITE,URINE NEGATIVE (NEGATIVE); PH,URINE 7 (4.5-8.0); PROTEIN,URINE 3+ (NEGATIVE); UROBILINOGEN,URINE NORMAL MG/DL (0.0-1.0)
[2019-02-27 20:21] LABS: APPEARANCE,URINE SLIGHTLY CLOUDY; COLOR,URINE BROWN
[2019-02-27] MEDS ORDERED: LEVAQUIN750 MG ORAL (20:58)
[2019-02-27 21:00] VITALS: BP 125/75
--- NOTE | 2019-02-27 21:00 | NUR ---
ER DISCHARGE NOTE: Patient is cleared to be discharged per ERMD, pt is aox4, on room air, with stable vital signs. pt was given dc and prescription instructions, pt was able to verbalize understanding, pt id band removed without complications. pt is able to ambulate with steady gait. pt took all belongings.
--- NOTE | 2019-02-27 21:37 | Emergency Room Report ---
History of Present Illness General Chief Complaint: Female Urogenital Problems Source: Patient Present Illness HPI 28-year-old female presents ED for evaluation. Brought in by mother in wheelchair. Noted to have hematuria today. Patient has history of spina bifida is wheelchair-bound. Has history of frequent UTIs. Is well-known to [facility]. Denies fevers or chills. Denies flank pain. Denies nausea or vomiting. No other aggravating relieving factors. Denies any other associated symptoms Allergies: Coded Allergies: LATEX (Verified Allergy, Mild, 08/31/13) MEROPENEM (Unverified Allergy, Mild, Rash, 11/27/14) CLINDAMYCIN (Verified Allergy, Unknown, 07/27/17) SULFAMETHOXAZOLE (Unverified Allergy, Unknown, 07/24/15) TRIMETHOPRIM (Unverified Allergy, Unknown, 07/24/15) VANCOMYCIN (Verified Adverse Reaction, Intermediate, Hives/Red man syndrome, 08/08/16) Red man syndrome Patient History Past Medical History: other - spina bifida Pertinent Family History: none Social History: Denies: smoking, alcohol use, drug use Last Menstrual Period: 02/09/19 Now: No Immunizations: UTD Reviewed Nursing Documentation: PMH: Agreed; PSxH: Agreed Nursing Documentation-PMH Past Medical History: No History, Except For Hx Cancer: No Hx Gastrointestinal Problems: Yes - GT PLACEMENT Hx Neurological Problems: Yes - hydrocephalus Hx Brain Shunt: Yes - Ventriculoperitoneal Shunt Review of Systems All Other Systems: negative except mentioned in HPI Physical Exam Vital Signs Date Time Temp Pulse Resp B/P (MAP) Pulse Ox O2 Delivery O2 Flow Rate FiO2 02/27/19 19:30 98.4 97 16 120/81 (94) 99 Room Air Sp02 EP Interpretation: reviewed, normal General Appearance: no apparent distress, alert, GCS 15, non-toxic Head: normocephalic, atraumatic Eyes: bilateral eye normal inspection, bilateral eye PERRL ENT: hearing grossly normal, normal pharynx, no angioedema, normal voice Neck: full range of motion, supple/symm/no masses Respiratory: chest non-tender, lungs clear, normal breath sounds, speaking full sentences Cardiovascular #1: regular rate, rhythm, no edema Cardiovascular #2: 2+ carotid (R), 2+ carotid (L), 2+ radial (R), 2+ radial (L) , 2+ dorsalis pedis (R), 2+ dorsalis pedis (L) Gastrointestinal: normal bowel sounds, non tender, soft, non-distended, no guarding, no rebound Rectal: deferred Genitourinary: normal inspection, no CVA tenderness Musculoskeletal: back normal Neurologic: alert, oriented x3, responsive, speech normal Psychiatric: judgement/insight normal, memory normal, mood/affect normal, no suicidal/homicidal ideation Reflexes: 3+ bicep (R), 3+ bicep (L), 3+ tricep (R), 3+ tricep (L), 3+ knee (R) , 3+ knee (L) Lymphatic: no adenopathy Medical Decision Making Diagnostic Impression: Primary Impression: UTI (urinary tract infection) Qualified Codes: N39.0 - Urinary tract infection, site not specified; R31.9 - Hematuria, unspecified ER Course Hospital Course 28-year-old female presents with hematuria. Frequent history of UTI Differential diagnoses include: UTI, cystitis, pyelonephritis Clinical course Patient placed on stretcher. After initial history and physical I ordered UA, urine . UA for bacteria and blood. Discussed findings with patient and mother. 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 Has responded previously well to Levaquin. Will discharge with Levaquin. Safe for discharge with close outpatient follow-up. Diagnosis - UTI Stable and discharged home with prescriptions for Rx levaquin. Instructed to followup with PMD. Return to ED if symptoms recur or worsen Labs Test 02/27/19 19:50 Urine Color Brown Urine Appearance Slightly cloudy Urine pH 7 (4.5-8.0) Urine Specific [place] 1.005 (1.005-1.035) Urine Protein 3+ (NEGATIVE) Urine Glucose (UA) Negative (NEGATIVE) Urine Ketones Negative (NEGATIVE) Urine Blood 5+ (NEGATIVE) Urine Nitrite Negative (NEGATIVE) Urine Bilirubin Negative (NEGATIVE) Urine Urobilinogen Normal MG/DL (0.0-1.0) Urine Leukocyte Esterase 3+ (NEGATIVE) Urine RBC 15-20 /HPF (0 - 2) Urine WBC 10-15 /HPF (0 - 2) Urine Squamous Epithelial Cells Few /LPF (NONE/OCC) Urine Bacteria Moderate /HPF (NONE) Urine HCG, Qualitative Negative (NEGATIVE) Last Vital Signs Date Time Temp Pulse Resp B/P (MAP) Pulse Ox O2 Delivery O2 Flow Rate FiO2 02/27/19 21:00 98.4 80 16 125/75 99 Room Air Status: improved Disposition: HOME, SELF-CARE Condition: Stable Scripts Levofloxacin* (LEVAQUIN*) 750 Mg Tablet 750 MG ORAL DAILY for 7 Days, TAB Prov: Shahid Gonsalez MD 02/27/19 Referrals: [facility] (PCP) Patient Instructions: Urinary Tract Infection Shahid Gonsalez MD Feb 27, 2019 21:37
== END 2019-02-27 21:00 | disposition home or self-care (01) ==
LOC: EMR 20:03
DX: N39.0 Urinary tract infection, site not specified (principal); R31.9 Hematuria, unspecified; Q05.9 Spina bifida, unspecified; Z99.3 Dependence on wheelchair; Z91.040 Latex allergy status; Z88.8 Allergy status to other drugs, medicaments and biological substances; Z88.1 Allergy status to other antibiotic agents; Z88.2 Allergy status to sulfonamides; Z95.9 Presence of cardiac and vascular implant and graft, unspecified; B96.20 Unspecified Escherichia coli [E. coli] as the cause of diseases classified elsewhere; Z16.29 Resistance to other single specified antibiotic; Z87.440 Personal history of urinary (tract) infections
CPT/HCPCS: 81003; 81025; 87086; 87181; 99283